=== PATIENT | female | born 1945 | race Caucasian/White ===

== ENCOUNTER → 2016-03-24 | Outpatient (CLI) | payer MEDICARE | LOC: GMAL 10:54 | PROVIDERS: ATTEND Family Medicine | DX: R53.83 Other fatigue (principal) ==

== ENCOUNTER 2016-04-21 10:56 | Emergency (ER) | payer MEDICARE ==
--- NOTE | 2016-04-21 11:13 | ED.PDOC ---
History of Present Illness - General Chief Complaint: Upper Extremity Injury Stated Complaint: pain right arm/fall Time Seen by Provider: 04/21/16 11:13 Source: patient - History of Present Illness Initial Comments: She stated dropped off her grandaughter in school and on her way to her car stepped off a curb lost her balance and fell on her right side;denies head neck chest hip pain but with bruising right knee. Timing/Duration: 1-3 hours Severity: moderate Improving Factors: rest Worsening Factors: movement Associated Symptoms: denies symptoms Allergies/Adverse Reactions: Allergies [place] Allergy (Severe, Verified 04/21/16 11:19) Amlodipine [From Norvasc] Allergy (Verified 04/21/16 11:19) Codeine Allergy (Verified 04/21/16 11:19) Diazepam [From Valium] Allergy (Verified 04/21/16 11:19) Penicillins Allergy (Verified 04/21/16 11:19) Phenytoin [From Dilantin] Allergy (Verified 04/21/16 11:19) Sulfa Antibiotics Allergy (Verified 04/21/16 11:19) oregano Allergy (Uncoded 05/01/15 16:09) Home Medications: Ambulatory Orders B-Complex W/ Folic Acid [B-Complex] 1 tab PO DAILY 01/28/15 Furosemide [Lasix] 80 mg PO DAILY 01/28/15 Lisinopril 20 mg PO DAILY 01/28/15 Simvastatin [Zocor] 20 mg PO BEDTIME 01/28/15 Spironolactone [Aldactone] 100 mg PO DAILY 01/28/15 Carvedilol 25 mg PO BID 04/21/16 Insulin NPH Isophane & Reg (Hu [Humulin 70/30] 45 unit SC BEDTIME 04/21/16 Insulin NPH Isophane & Reg (Hu [Humulin 70/30] 60 unit SC DAILY 04/21/16 Tramadol HCl 50 mg PO TID PRN #20 tab 04/21/16 Review of Systems - Review of Systems Constitutional: States: no symptoms reported EENTM: States: no symptoms reported Respiratory: States: no symptoms reported Cardiology: States: no symptoms reported Gastrointestinal/Abdominal: States: no symptoms reported Genitourinary: States: no symptoms reported Musculoskeletal: States: other - pain right arm Skin: States: other - abrasion (r)-knee Neurological: States: no symptoms reported Endocrine: States: no symptoms reported Hematologic/Lymphatic: States: no symptoms reported Past Medical History (General) - Patient Medical History Hx Seizures: No Hx Stroke: No Hx Asthma: No Hx of COPD: No Hx Cardiac Disorders: No Hx Congestive Heart Failure: Yes Hx Pacemaker: No Hx Hypertension: Yes Hx Diabetes: Yes Hx MRSA: No Hx Other PMH: Yes - dyslipedemia,anemia Surgical History: other - eye surgeryparotid excision right,excision basal cell ca,colonoscopy,egd - Vaccination History Hx Influenza Vaccination: No - does not take them - Social History Hx Tobacco Use: No Hx Alcohol Use: No Hx Substance Use: No Hx Physical Abuse: No Hx Emotional Abuse: No Family Medical History - Family History Mother Family History: Unknown Living Status: Unknown Hx Cardiac Disease: Yes - mom Hx Family Diabetes: Yes - dad Physical Exam - Physical Exam General Appearance: Alert, No apparent distress Eye Exam: bilateral normal Ears, Nose, Throat: hearing grossly normal, normal ENT inspection, normal pharynx Neck: non-tender, full range of motion, supple Respiratory: chest non-tender, lungs clear, normal breath sounds, no respiratory distress, no accessory muscle use Cardiovascular/Chest: normal peripheral pulses, regular rate, rhythm, no edema, no gallop, no JVD, no murmur Peripheral Pulses: radial,right: 2+, radial,left: 2+ Gastrointestinal/Abdominal: non tender, soft, no organomegaly, no pulsatile mass Back Exam: normal inspection, no CVA tenderness, no vertebral tenderness Extremity: non-tender, normal inspection, no pedal edema, no calf tenderness Neurologic: no motor/sensory deficits, alert, normal mood/affect, oriented x 3 Skin Exam: other - superficial abrasioelbow and knee Progress - EKG/XRAY/CT XRAY: elbow - no fracture-right;humerus right -no fracture;knee right-no fracture,degenerative chngas Departure - Departure Clinical Impression: Fall due to stumbling Qualifiers: Encounter type: initial encounter Qualifier Code: (W01.0XXA) Fall on same level from slipping, tripping and stumbling without subsequent striking against object, initial encounter Abrasion of elbow Qualifiers: Encounter type: initial encounter Laterality: right Qualifier Code: (S50.311A) Abrasion of right elbow, initial encounter Contusion of arm, right Qualifiers: Encounter type: initial encounter Qualifier Code: (S40.021A) Contusion of right upper arm, initial encounter Contusion of knee, right Qualifiers: Encounter type: initial encounter Qualifier Code: (S80.01XA) Contusion of right knee, initial encounter Time of Disposition: 12:23 Disposition: Discharge to Home or Self Care Condition: Good Departure Forms: ED Discharge - Pt. Copy, Patient Portal Self Enrollment Instructions: DI for Contusion, DI for Abrasion Prescriptions: Tramadol HCl 50 mg PO TID PRN #20 tab PRN Reason: Pain Home Medications: Ambulatory Orders B-Complex W/ Folic Acid [B-Complex] 1 tab PO DAILY 01/28/15 Furosemide [Lasix] 80 mg PO DAILY 01/28/15 Lisinopril 20 mg PO DAILY 01/28/15 Simvastatin [Zocor] 20 mg PO BEDTIME 01/28/15 Spironolactone [Aldactone] 100 mg PO DAILY 01/28/15 Carvedilol 25 mg PO BID 04/21/16 Insulin NPH Isophane & Reg (Hu [Humulin 70/30] 45 unit SC BEDTIME 04/21/16 Insulin NPH Isophane & Reg (Hu [Humulin 70/30] 60 unit SC DAILY 04/21/16 Tramadol HCl 50 mg PO TID PRN #20 tab 04/21/16 Additional Instructions: RETURN TO EMERGENCY ROOM NEEDED
--- NOTE | 2016-04-21 12:25 | RAD ---
EXAM DESCRIPTION: XR KNEE 1-2 VIEWS CLINICAL HISTORY: pain COMPARISON: None. IMPRESSION: Three views of the right knee show no evidence of acute fracture, focal bone destruction, or joint dislocation. Cross-table lateral view shows no obvious joint effusion or fluid fluid level in the suprapatella bursa. Mild narrowing of the patellofemoral compartment and moderate narrowing of the medial tibiofemoral compartment with joint line osteophytes is seen consistent with osteoarthritic changes. Moderate vascular calcifications are noted. Electronically signed by: Cristobal Cano MD 04/21/2016 12:24
--- NOTE | 2016-04-21 12:27 | RAD ---
EXAM DESCRIPTION: XR ELBOW 3 VIEWS; XR HUMERUS CLINICAL HISTORY: 70 y/o ,F, pain COMPARISON: None. IMPRESSION: Two views of the right humerus demonstrate no evidence of a fracture. Degenerative change of the acromioclavicular joint noted. Three views of the right elbow demonstrates evidence of previous tendinopathy of the common extensor tendon of the right forearm. No evidence of of the right elbow fracture on today's exam. Electronically signed by: Julio Cesar Ferrell MD 04/21/2016 12:25
[2016-04-21 13:38] VITALS: BP 136/58; TEMP 98; O2SAT 99
== END 2016-04-21 13:25 | disposition home or self-care (01) ==
LOC: ER 10:56
DX: S50.311A Abrasion of right elbow, initial encounter (principal); S40.021A Contusion of right upper arm, initial encounter; S80.01XA Contusion of right knee, initial encounter; I50.9 Heart failure, unspecified; Z88.0 Allergy status to penicillin; Z88.2 Allergy status to sulfonamides; Z79.4 Long term (current) use of insulin; Z79.899 Other long term (current) drug therapy; Z88.6 Allergy status to analgesic agent; Z91.018 Allergy to other foods; W10.1XXA Fall (on)(from) sidewalk curb, initial encounter

== ENCOUNTER 2016-04-26 07:56 | Emergency (ER) | payer MEDICARE ==
--- NOTE | 2016-04-26 08:22 | ED.PDOC ---
History of Present Illness - General Chief Complaint: General Stated Complaint: weakness, fall Time Seen by Provider: 04/26/16 08:12 Source: patient, RN notes reviewed, Vital Signs reviewed, EMS notes reviewed Exam Limitations: no limitations - History of Present Illness Initial Comments: Ms. Darleen Irwin 70 y/o female with history of dm2,heart disease,and thyroid problem stated fell at home today but could not remember how she fell at home stated she was dizzy and mouth feels dry,and had not eaten breakfast.FSBS- 400.She stated that had an episode of vomiting 2 days ago .She denies weakness, slurred speech,blurry vision.Fell off a curb 4 days ago but no major injuries. Timing/Duration: 1-3 hours Improving Factors: nothing Worsening Factors: nothing Associated Symptoms: denies symptoms, headaches Allergies/Adverse Reactions: Allergies [place] Allergy (Severe, Verified 04/26/16 08:07) Amlodipine [From Norvasc] Allergy (Verified 04/26/16 08:07) Codeine Allergy (Verified 04/26/16 08:07) Diazepam [From Valium] Allergy (Verified 04/26/16 08:07) Penicillins Allergy (Verified 04/26/16 08:07) Phenytoin [From Dilantin] Allergy (Verified 04/26/16 08:07) Sulfa Antibiotics Allergy (Verified 04/26/16 08:07) oregano Allergy (Uncoded 04/26/16 08:07) Home Medications: Ambulatory Orders B-Complex W/ Folic Acid [B-Complex] 1 tab PO DAILY 01/28/15 Furosemide [Lasix] 80 mg PO DAILY 01/28/15 Lisinopril 20 mg PO DAILY 01/28/15 Simvastatin [Zocor] 20 mg PO BEDTIME 01/28/15 Spironolactone [Aldactone] 100 mg PO DAILY 01/28/15 Carvedilol 25 mg PO BID 04/21/16 Insulin NPH Isophane & Reg (Hu [Humulin 70/30] 45 unit SC BEDTIME 04/21/16 Insulin NPH Isophane & Reg (Hu [Humulin 70/30] 60 unit SC DAILY 04/21/16 Tramadol HCl 50 mg PO TID PRN #20 tab 04/21/16 Review of Systems - Review of Systems Constitutional: States: no symptoms reported EENTM: States: no symptoms reported Respiratory: States: no symptoms reported Cardiology: States: no symptoms reported Gastrointestinal/Abdominal: States: no symptoms reported Genitourinary: States: no symptoms reported Musculoskeletal: States: no symptoms reported Skin: States: no symptoms reported Neurological: States: see HPI, other - dizziness Endocrine: States: no symptoms reported Hematologic/Lymphatic: States: no symptoms reported Past Medical History (General) - Patient Medical History Hx Seizures: No Hx Stroke: No Hx Asthma: No Hx of COPD: No Hx Cardiac Disorders: No Hx Congestive Heart Failure: Yes Hx Pacemaker: No Hx Hypertension: Yes Hx Diabetes: Yes Hx Cancer: Yes - non-basal cell CA from nose removed Hx MRSA: No Surgical History: other - excision (r)parotid gland tumor - Vaccination History Hx Influenza Vaccination: No - does not take them Hx Pneumococcal Vaccination: Yes - 2016 - Social History Hx Tobacco Use: No Hx Alcohol Use: No Hx Substance Use: No Hx Physical Abuse: No Hx Emotional Abuse: No - Activities of Daily Living Patient Lives Alone: No - with son, Grooming Ability: Independent Eating (Feeding) Ability: Independent Toileting Ability: Independent Family Medical History - Family History Mother Family History: Unknown Living Status: Hx Cardiac Disease: Yes - mom Hx Family Diabetes: Yes - dad Hx Family Cancer: Yes - basal cell ca-dad;uterine ca-sister,mother Physical Exam - Physical Exam General Appearance: Alert, No apparent distress, Other - speech fluent Eye Exam: bilateral normal Ears, Nose, Throat: hearing grossly normal, normal ENT inspection, normal pharynx Neck: non-tender, full range of motion, supple, normal inspection Respiratory: chest non-tender, lungs clear, normal breath sounds, no respiratory distress, no accessory muscle use Cardiovascular/Chest: normal peripheral pulses, regular rate, rhythm, no edema, no gallop, no JVD Gastrointestinal/Abdominal: normal bowel sounds, non tender, soft, no organomegaly, no pulsatile mass Back Exam: normal inspection, no CVA tenderness, no vertebral tenderness Extremity: normal range of motion, non-tender, normal inspection Neurologic: no motor/sensory deficits, alert, normal mood/affect, oriented x 3, other - GCS-15 Skin Exam: normal color, warm/dry, other - ;old bruises from previus fall both legs Lymphatic: no adenopathy Progress - EKG/XRAY/CT EKG: Sinus, nonspecific ST T wave Chg - inferior leads XRAY: chest - no acute changes noted CT Ordered: Yes - scalp hematoma posterior left vertx;linear area of hyperdensity (r) vertex Departure - Departure Clinical Impression: Diabetes mellitus due to underlying condition with hyperosmolarity without nonketotic hyperglycemic-hyperosmolar coma ([facility]) Fall at home Qualifiers: Encounter type: initial encounter Qualifier Code: (W19.XXXA) Unspecified fall, initial encounter Hemorrhage of brain, traumatic Qualifiers: Encounter type: initial encounter Loss of consciousness presence/duration: without LOC Qualifier Code: (S06.300A) Unspecified focal traumatic brain injury without loss of consciousness, initial encounter Acute pancreatitis, unspecified Qualifiers: Pancreatitis type: other Qualifier Code: (K85.8) Other acute pancreatitis Time of Disposition: 10:43 - D/W-- URS- Disposition: Transfer to Hospital Departure Forms: ED Discharge - Pt. Copy, Patient Portal Self Enrollment Referrals: Jordin Altman III, MD [Primary Care Provider] - 1-2 Weeks Home Medications: Ambulatory Orders B-Complex W/ Folic Acid [B-Complex] 1 tab PO DAILY 01/28/15 Furosemide [Lasix] 80 mg PO DAILY 01/28/15 Lisinopril 20 mg PO DAILY 01/28/15 Simvastatin [Zocor] 20 mg PO BEDTIME 01/28/15 Spironolactone [Aldactone] 100 mg PO DAILY 01/28/15 Carvedilol 25 mg PO BID 04/21/16 Insulin NPH Isophane & Reg (Hu [Humulin 70/30] 45 unit SC BEDTIME 04/21/16 Insulin NPH Isophane & Reg (Hu [Humulin 70/30] 60 unit SC DAILY 04/21/16 Tramadol HCl 50 mg PO TID PRN #20 tab 04/21/16
[2016-04-26] MEDS ORDERED: SODIUM CHLORIDE 0.9% 500ML 500 ML IVS ONE (08:25)
--- NOTE | 2016-04-26 08:49 | RAD ---
EXAM DESCRIPTION: XR CHEST 1 VIEW CLINICAL HISTORY: Chest pain. COMPARISON: None Available. TECHNIQUE: Frontal chest radiograph. FINDINGS: Heart size is normal. Lungs are clear. No acute osseous injury. IMPRESSION: No acute chest process Electronically signed by: Aman Meyer MD 04/26/2016 08:47
--- NOTE | 2016-04-26 08:50 | CT ---
EXAM DESCRIPTION: CT HEAD WITHOUT IV CONTRAST CLINICAL HISTORY: headche COMPARISON: None available TECHNIQUE: Non contrast cranial CT FINDINGS: Hematoma along the posterior left vertex. Hyperdensity noted along the vertex of the right frontoparietal lobe. The ventricles are midline and unremarkable. Basilar cisterns are widely patent. Atherosclerotic disease noted. The orbits and globes are unremarkable. The calvarium is intact. IMPRESSION: Subcutaneous hematoma noted along the counseling department chair margin of the vertex. There is a linear area of hyperdensity seen within the right vertex of the frontoparietal lobe. This may be compatible with hemorrhage. MRI is suggested with gradient sequences within both the coronal and axial dimensions. Electronically signed by: Julio Cesar Ferrell MD 04/26/2016 08:49
[2016-04-26 09:53] VITALS: O2SAT 100
[2016-04-26] MEDS ORDERED: INSULIN, REG.(HUMAN) 100 U/ML VIAL IV ONE ×2 (10:02→11:50)
[2016-04-26] MEDS ORDERED: SODIUM CHLORIDE 0.9% 1000ML 1,000 ML IVS ONE (10:26)
[2016-04-26 11:35] VITALS: BP 119/55; TEMP 97.5
== END 2016-04-26 11:45 | disposition short-term general hospital (02) ==
LOC: ER 07:56
DX: S06.300A Unspecified focal traumatic brain injury without loss of consciousness, initial encounter (principal); K85.80 Other acute pancreatitis without necrosis or infection; I11.0 Hypertensive heart disease with heart failure; I50.9 Heart failure, unspecified; E08.00 Diabetes mellitus due to underlying condition with hyperosmolarity without nonketotic hyperglycemic-hyperosmolar coma (NKHHC); Z79.4 Long term (current) use of insulin; Z85.828 Personal history of other malignant neoplasm of skin; Z88.6 Allergy status to analgesic agent; Z88.0 Allergy status to penicillin; Z91.018 Allergy to other foods; W19.XXXA Unspecified fall, initial encounter; Z91.81 History of falling; Y92.009 Unspecified place in unspecified non-institutional (private) residence as the place of occurrence of the external cause
CPT/HCPCS: 36416; 36600; 70450; 71010; 80048; 80053; 82550; 82553; 82803; 82805; 82948; 83690; 83880; 84443; 84484; 85025; 85610; 85730; 93005; J7030; J7040

== ENCOUNTER 2016-05-01 17:05 | Inpatient (IN) | payer MEDICARE ==
[2016-05-01] MEDS ORDERED: SODIUM CHLORIDE 0.9% (FLUSH) 10 ML SYG IV PRN (20:21)
[2016-05-01] MEDS ORDERED: DEXTROSE 50% 25 GM/50 ML SYG IV PRN (20:21)
[2016-05-01] MEDS ORDERED: ALUM & MAG HYDROX-SIMETHICONE 30 ML UD PO PRN (20:21)
[2016-05-01] MEDS ORDERED: MAGNESIUM HYDROXIDE 30 ML UD PO PRN (20:21)
[2016-05-01] MEDS ORDERED: GLUCAGON INJ 1 MG VIAL SUBCU PRN (20:21)
[2016-05-01] MEDS ORDERED: INSULIN DETEMIR 100 UNITS/ML PEN SUBCU ONE (20:31)
[2016-05-01] MEDS ORDERED: CHLORHEXIDINE GLUCONATE 4 % 15 ML UD TOP ONE (20:36)
[2016-05-01] MEDS ORDERED: NON-FORMULARY MEDICATION 1 EA MIS (Carvedilol [Carvedilol] 6.25 MG) PO SCH (21:00)
[2016-05-01] MEDS ORDERED: CARVEDILOL 3.125 MG TAB ONE (21:11)
[2016-05-01] MEDS: LEVALBUTEROL NEBS 1.25 MG/3 ML VIAL INH SCH (21:22)
[2016-05-01] MEDS: NYSTATIN POWDER 15GM BTTL TOP SCH (22:05)
[2016-05-01] MEDS: SODIUM CHLORIDE 0.9% (FLUSH) 10 ML SYG IV SCH (22:06)
[2016-05-01] MEDS: traMADol HCL 50 MG TAB PO PRN (22:06)
[2016-05-01] MEDS: INSULIN LISPRO 100 UNITS/ML PEN SUBCU SCH (22:07)
[2016-05-01] MEDS: IV SET AND CAP CHANGE INJ INJ SCH (22:10)
[2016-05-02] MEDS: OMEPRAZOLE CAP 20 MG CAP PO SCH (06:24)
[2016-05-02] MEDS ORDERED: SODIUM CHLORIDE 0.9% 10 ML VIAL IV PRN (07:19)
[2016-05-02] MEDS: INSULIN LISPRO 100 UNITS/ML PEN SUBCU SCH ×4 (07:20→21:33)
[2016-05-02] MEDS: SPIRONOLACTONE 25 MG TAB PO SCH (08:20)
[2016-05-02] MEDS: LEVALBUTEROL NEBS 1.25 MG/3 ML VIAL INH SCH ×3 (08:32→21:45)
--- NOTE | 2016-05-02 09:01 | HP ---
HISTORY OF PRESENT ILLNESS: This 70-year-old, white female was transferred from [facility] after having spent 5 days there after significant injury was noted in our Emergency Room on 04/26/16. She apparently had fallen about 5 days earlier and had suffered injury to her shoulder when walking back from a school and tripping in a curb. On the morning of 04/26/16, she was at home with her disabled son, who has Guillain- Crockett and advanced disability who is now in a senior living. She lost consciousness and fell, hitting her head and woke up with EMS attending to her needs. In the Emergency Room, she was found to be suffering from a hyperosmolar state with possibly contribution to syncope with early coma state noted. Her sugars were over 900 at the time. She was in metabolic acidosis and was transferred to [place] for specific assistance and support. When she fell and hit her head, she also had evidence of a subarachnoid hemorrhage on the initial CT scan which cleared on subsequent CT scans of the head. She was observed neurologically in the Intensive Care Unit and eventually transferred to Med/Surg where her diabetes was managed with eventual use of Levemir twice daily. She was initially started on 40 units twice a day, resulting in a very low blood sugar, especially in the morning. She is now on 30 units twice a day as of yesterday and this also will need to be adjusted to a more physiologic level before she will be able to discharged home under Dr. Altman ongoing care. She was transferred from [facility] to our hospital for continuation of rehabilitation on a Swing Bed status, to which she is admitted. Basic laboratory studies will be followed initially and then only as needed. Her initial sugar was around 73 before eating supper on the evening of her admission to Swing Bed. PAST MEDICAL HISTORY: 1. Diabetes mellitus, having changed from metformin because of kidney injury potential to insulin. 2. Hypertension. 3. Recent diabetic acidosis with hyperosmolar state requiring ICU transfer to [place], now with continued diabetic management. 4. Chronic renal insufficiency. 5. History of seizure disorder. 6. History of deep venous thrombosis of the left arm in the 80s. 7. Chronic hypokalemia with the patient being on Lasix and Spironolactone. 8. Chronic congestive heart failure with last echocardiogram showing 50% ejection fraction with diastolic dysfunction. 9. History of hyperlipidemia. 10. History of positive Helicobacter pylori. PAST SURGICAL HISTORY: 1. Basal cell removed from the nose. 2. 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 3. Wrist cyst removal. 4. Multiple eye surgeries because of trauma from a button fragment that went into her left eye. 5. Colonoscopy for anemia in January of 2015. MEDICATIONS: Please refer to list for up to date and verified list of medications taken. ALLERGIES: NORVASC, which causes edema, METFORMIN, hurts kidney function, SULFA , PENICILLIN. SHE HAS ANAPHYLAXIS TO STRAWBERRIES. SHE HAS HAD PROBLEMS WITH DILANTIN, DIAZEPAM AND CODEINE. FAMILY HISTORY: Positive for atrial fibrillation, hypertension, diabetes, heart disease. She has had some brothers dying with pneumonia, congenital heart disease, and heart attacks. She has a sister with uterine cancer. She has one son who is in the senior living now with Guillain-Crockett in poor health, though showing some improvement. 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 Her father earlier today. Her son, as mentioned before, is in [facility]. She has never smoked and does not drink alcohol. REVIEW OF SYSTEMS: GENERAL: She has lost significant weight recently, primarily because she has not been eating well and the diabetes has been poorly controlled. RESPIRATORY: She has had some mild shortness of breath. GASTROINTESTINAL: Appetite has been decreased until just yesterday. CARDIOVASCULAR: No palpitations or chest pains. GENITOURINARY: She has some polyuria with her diabetes poorly controlled. MUSCULOSKELETAL: Very weak and multiple pains with occasional causing her right shoulder to go out of socket. NEUROLOGIC: She is generally very weak. PHYSICAL EXAMINATION: VITAL SIGNS: Afebrile. Blood pressure 137/78. Pulse oximetry room air 100%. Weight 92.9 kg. GENERAL: The patient is awake, alert, oriented and communicative. HEENT: She has deformity where her right parotid was, slight scar on her nose where skin cancer was removed. NECK: Supple. LUNGS: Diminished breath sounds with occasional rhonchi. CARDIOVASCULAR: Heart tones are regular without any significant gallops. ABDOMEN: Soft with mild epigastric tenderness to palpation. Otherwise, bowel tones are present. EXTREMITIES: Very touchy with evidence of peripheral neuropathy according to the patient. Some bilateral pedal edema is evident and bruising is noted over the arms from IV sites and some of her falls. NEUROLOGIC: No focal neurological deficits. The patient is awake, alert, oriented and communicative. LABORATORY: Pending with most recent blood sugar being 73 at the time of her admission. Cultures are obtained and pending. ASSESSMENT: 1. History of diabetes mellitus on insulin therapy with hyperosmolar state and syncope with metabolic acidosis recently noted and now in the recuperative state. 2. Chronic history of hypokalemia, requiring close observation and management as needed. 3. History of chronic renal insufficiency with an acute injury with reevaluation in process. 4. History of falling with head injury and subarachnoid hemorrhage, showing improvement on followup CT scans of the head. 5. Chronic shoulder pain with dislocation, yet falling and acute injury currently, recuperating from. 6. Chronic weakness, precluding her safely being able to return home until after rehab and strengthening has been completed. PLAN: The patient is admitted to Swing Bed rehabilitation until she is strong enough to safely return home. She will be observed closely and increase activity steadily. Encourage adequate nutrition to improve her general strength. Treat a draining lesion on her chest as a boil. She was started on Doxycycline recently, but cultures will be obtained and general cleaning to the area is imperative. Close followup of diabetes and management with an attempt to give her twice daily Levemir, but try to give her maybe 2/3 of her dose in the morning and 1/3 in the evening. Close followup necessary. Physical therapy will continue with rehabilitation with Social Service intervention as well. #[id number] [facility]ITALEst[facility]
[2016-05-02] MEDS: CARVEDILOL 3.125 MG TAB PO SCH ×2 (09:20→21:33)
[2016-05-02] MEDS: FUROSEMIDE 40 MG TAB PO SCH (09:20)
[2016-05-02] MEDS: LISINOPRIL 10 MG TAB PO SCH (09:21)
[2016-05-02] MEDS: NYSTATIN POWDER 15GM BTTL TOP SCH ×2 (09:21→21:42)
[2016-05-02] MEDS: SODIUM CHLORIDE 0.9% (FLUSH) 10 ML SYG IV SCH ×2 (09:22→21:35)
[2016-05-02] MEDS: ACETAMINOPHEN 325 MG TAB PO PRN (10:58)
[2016-05-02] MEDS ORDERED: INSULIN DETEMIR 100 UNITS/ML PEN SUBCU ONE ×2 (14:24→15:54)
--- NOTE | 2016-05-02 15:39 | PN ---
DATE: 05/02/16 SUBJECTIVE: The patient is sitting up in a chair with her legs elevated. She is able to carry on a good conversation. No significant shortness of breath at this time. Ongoing diabetic control as well as treatment and cleansing to the chest wound is to continue. OBJECTIVE: VITAL SIGNS: Afebrile. Pulse 93. Pulse oximetry 98% on room air. Blood pressure 140/74. LUNGS: Generally clear. HEART: Tones are regular ABDOMEN: Soft. Still requiring ongoing cleaning and dressing to the draining area of anterior chest wall. LABORATORY: Potassium 4.0, BUN 10. Initial glucose last evening was 73. It was 125 fasting this morning. Hemoglobin A1c very elevated at 12.6, requiring ongoing control of the diabetes by insulin adjustments. Calcium 8.5. Liver enzymes normal. Beta natriuretic peptide 66. Albumin low at 2.4. Urine showed some hematuria, some pyuria and bacteruria with culture pending. ASSESSMENT: 1. History of diabetes mellitus on insulin therapy with recent severe episode of hyperosmolar state with syncope with associated metabolic acidosis requiring intensive care observation and treatment and now in the recuperative state. 2. Chronic history of hypokalemia with ongoing observation and supplementation to continue. 3. History of chronic renal insufficiency with an acute injury with further investigation in process. 4. History of falling with head injury and subarachnoid hemorrhage, showing improvement on followup CT scans with the hemorrhage no longer being noted. 5. Chronic shoulder pain with dislocation, recurrent. 6. Chronic weakness, precluding her safely being able to return home until after rehab and strengthening has been completed. PLAN: We will continue with ongoing adjustment of her insulin. Hopefully she will be able to be on dosings of Levemir such as 25 in the morning and 10 in the evening, but we will recheck fasting blood sugars in the morning as rehabilitation continues. Close followup to continue. #[id number] [facility]
[2016-05-02] MEDS: traMADol HCL 50 MG TAB PO PRN (20:17)
[2016-05-03] MEDS: traMADol HCL 50 MG TAB PO PRN ×2 (04:41→20:58)
[2016-05-03] MEDS: OMEPRAZOLE CAP 20 MG CAP PO SCH (06:00)
[2016-05-03] MEDS: INSULIN LISPRO 100 UNITS/ML PEN SUBCU SCH ×4 (08:15→21:00)
[2016-05-03] MEDS: LEVALBUTEROL NEBS 1.25 MG/3 ML VIAL INH SCH ×3 (08:25→20:33)
[2016-05-03] MEDS: CARVEDILOL 3.125 MG TAB PO SCH ×2 (09:12→20:57)
[2016-05-03] MEDS: SPIRONOLACTONE 25 MG TAB PO SCH (09:12)
[2016-05-03] MEDS: FUROSEMIDE 40 MG TAB PO SCH (09:12)
[2016-05-03] MEDS: LISINOPRIL 10 MG TAB PO SCH (09:13)
[2016-05-03] MEDS: NYSTATIN POWDER 15GM BTTL TOP SCH ×2 (09:14→20:59)
[2016-05-03] MEDS: SODIUM CHLORIDE 0.9% (FLUSH) 10 ML SYG IV SCH ×2 (09:15→21:05)
[2016-05-03] MEDS ORDERED: FLUCONAZOLE 150 MG TAB PO ONE (12:15)
[2016-05-03] MEDS: DOXYCYCLINE HYCLATE CAP 100 MG CAP PO SCH ×2 (12:25→20:58)
[2016-05-03] MEDS: CEPHALEXIN MONOHYDRATE 500 MG CAP PO SCH (12:26)
[2016-05-03] MEDS ORDERED: INSULIN DETEMIR 100 UNITS/ML PEN SUBCU ONE (17:22)
--- NOTE | 2016-05-03 19:23 | PN ---
DATE: 05/03/16 SUPERVISING PHYSICIAN: Aman Lambert M.D. SUBJECTIVE: The patient is sitting in the bedside chair eating lunch. She has no significant shortness of breath. Has no nausea or vomiting. She does note that had some drainage coming from the wound on her chest. OBJECTIVE: VITAL SIGNS: She remains afebrile, temperature 97.9, pulse 80, blood pressure 116/64, respirations 18, O2 sat 98% on room air. Weight is 92.9 kg. CHEST: Clear to auscultation. HEART: Regular rate and rhythm. Chest wall shows an area of erythema and drainage with some green purulent fluid with current culture results pending. ABDOMEN: Soft, positive bowel sounds. NEUROLOGIC: She is alert and oriented times three. LABORATORY: No laboratory or radiological studies repeated since admission. Blood sugars have ranged from 121 to 295. MICROBIOLOGY: Wound culture of the chest wound anterior shows gram positive cocci with culture pending final report. Urine culture preliminary shows presumptive Proteus species with final sensitivity and identification pending. ASSESSMENT: 1. History of diabetes mellitus requiring insulin therapy with a recent severe episode of hyperosmolar state with syncope with associated metabolic acidosis requiring transfer to [facility] for intensive care showing improvement after being discharged to Swing Bed. 2. Chronic history of hypokalemia. 3. History of chronic renal insufficiency with acute injury. 4. History of fall with a head injury and a subarachnoid hemorrhage showing improvement with followup CT scans with hemorrhage no longer being noted. 5. Chronic shoulder pain with dislocation recurrent. 6. Chronic weakness precluding her safety being able to return home until after rehabilitation and strengthening has been completed through her Swing Bed admission. 7. Urinary tract infection on admission to Swing Bed with culture preliminary showing a Proteus species. 8. Skin abscess of the anterior chest wall with preliminary culture results showing gram positive cocci. PLAN: The patient will continue on adjustment of her insulin today. Will start her on Levemir initially 25 and 10 at night, closely monitor. Anticipate possibly decreasing in the morning based off sliding scale requirements. She will continue with rehabilitation and physical therapy. In regards to the abscess on her chest wall, will put her on some Doxycycline 100 mg b.i.d. and for the urinary tract infection Keflex 500 mg b.i.d. until we get final culture results, then we can target antibiotic therapy accordingly. Until discharge, will continue to follow closely and treat appropriately. #[id number] [facility]
[2016-05-03] MEDS: INSULIN DETEMIR 100 UNITS/ML PEN SUBCU SCH (21:02)
--- NOTE | 2016-05-03 23:18 | PCM.CORE ---
Physician DVT/VTE - Nurse DVT Assessment & Total Each Risk Factor Represents 5 Points: Major Trauma < 1 month Each Risk Factor Represents 2 Points: Age 60-74 Each Risk Factor is 1 Point: Serious Lung disease (pnemonia <1month, COPD, emphysema,etc) DVT Assessment Score: 8 - 5 or more Very High Risk Treatments: Early Ambulation *, Sequential Compression Device Pharmacological: Enoxaparin 30mg SQ BID
[2016-05-04] MEDS: CEPHALEXIN MONOHYDRATE 500 MG CAP PO SCH ×2 (00:30→12:10)
[2016-05-04] MEDS: traMADol HCL 50 MG TAB PO PRN (05:13)
[2016-05-04] MEDS: OMEPRAZOLE CAP 20 MG CAP PO SCH (06:07)
[2016-05-04] MEDS: INSULIN LISPRO 100 UNITS/ML PEN SUBCU SCH ×2 (07:13→11:54)
[2016-05-04] MEDS ORDERED: ENOXAPARIN SODIUM 30 MG/0.3 ML SYG SUBCU ONE (07:22)
[2016-05-04] MEDS: ACETAMINOPHEN 325 MG TAB PO PRN (07:55)
[2016-05-04] MEDS ORDERED: TROLAMINE SALICYLATE CREAM 1 APPLIC TUBE TOP PRN (08:08)
[2016-05-04] MEDS ORDERED: CAPSAICIN 0.025% CREAM 60 GM TUBE TOP PRN (08:27)
[2016-05-04] MEDS: LEVALBUTEROL NEBS 1.25 MG/3 ML VIAL INH SCH ×3 (08:29→20:00)
[2016-05-04] MEDS: NYSTATIN POWDER 15GM BTTL TOP SCH (09:00)
[2016-05-04] MEDS: SPIRONOLACTONE 25 MG TAB PO SCH (09:13)
[2016-05-04] MEDS: FUROSEMIDE 40 MG TAB PO SCH (09:14)
[2016-05-04] MEDS: DOXYCYCLINE HYCLATE CAP 100 MG CAP PO SCH (09:14)
[2016-05-04] MEDS: CARVEDILOL 3.125 MG TAB PO SCH (09:14)
[2016-05-04] MEDS: LISINOPRIL 10 MG TAB PO SCH (09:14)
[2016-05-04] MEDS: SODIUM CHLORIDE 0.9% (FLUSH) 10 ML SYG IV SCH (09:14)
[2016-05-04] MEDS: ENOXAPARIN SODIUM 30 MG/0.3 ML SYG SUBCU SCH (09:15)
[2016-05-04] MEDS: INSULIN DETEMIR 100 UNITS/ML PEN SUBCU SCH (10:06)
[2016-05-04] MEDS ORDERED: GENTAMICIN OPTH OINT 0.3% 3.5 GM TUBE ONE (11:43)
[2016-05-04] MEDS: GENTAMICIN 0.1% TOPICAL CREAM 15 GM TUBE TOP SCH (13:11)
[2016-05-05] MEDS: LEVALBUTEROL NEBS 1.25 MG/3 ML VIAL INH SCH ×3 (08:41→21:34)
[2016-05-05] MEDS: INSULIN LISPRO 100 UNITS/ML PEN SUBCU SCH ×6 (09:24→20:53)
[2016-05-05] MEDS: INSULIN DETEMIR 100 UNITS/ML PEN SUBCU SCH ×3 (09:27→20:53)
[2016-05-05] MEDS: GENTAMICIN 0.1% TOPICAL CREAM 15 GM TUBE TOP SCH ×6 (09:37→20:50)
[2016-05-05] MEDS: IV SET AND CAP CHANGE INJ INJ SCH (09:39)
[2016-05-05] MEDS: DOXYCYCLINE HYCLATE CAP 100 MG CAP PO SCH ×3 (09:39→20:50)
[2016-05-05] MEDS: CARVEDILOL 3.125 MG TAB PO SCH ×3 (09:39→20:51)
[2016-05-05] MEDS: NYSTATIN POWDER 15GM BTTL TOP SCH ×3 (09:39→20:52)
[2016-05-05] MEDS: SODIUM CHLORIDE 0.9% (FLUSH) 10 ML SYG IV SCH ×3 (09:39→20:51)
[2016-05-05] MEDS: OMEPRAZOLE CAP 20 MG CAP PO SCH (09:40)
[2016-05-05] MEDS: LISINOPRIL 10 MG TAB PO SCH (09:41)
[2016-05-05] MEDS: SPIRONOLACTONE 25 MG TAB PO SCH (09:41)
[2016-05-05] MEDS: FUROSEMIDE 40 MG TAB PO SCH (09:41)
[2016-05-05] MEDS: CEPHALEXIN MONOHYDRATE 500 MG CAP PO SCH ×2 (09:43→12:09)
[2016-05-05] MEDS: ENOXAPARIN SODIUM 30 MG/0.3 ML SYG SUBCU SCH (09:44)
[2016-05-05] MEDS ORDERED: COLCHICINE 0.6 MG TAB PO ONE (13:01)
[2016-05-05] MEDS ORDERED: COLCHICINE 0.6 MG TAB ONE (13:18)
--- NOTE | 2016-05-05 15:20 | RAD ---
EXAM DESCRIPTION: Right ankle two views CLINICAL HISTORY: 70 y/o ,F, Gout COMPARISON: None. IMPRESSION: Diffuse soft tissue swelling. Bones are osteopenic. No definite pannus. Prominent plantar spur/enthesophyte mild ankle fluid. Small Achilles enthesophyte. No definite gouty erosions. Electronically signed by: Fred Bates MD 05/05/2016 15:18
--- NOTE | 2016-05-05 15:21 | RAD ---
EXAM DESCRIPTION: Left foot two views CLINICAL HISTORY: 70 y/o ,F, Gout COMPARISON: None. IMPRESSION: There are Achilles and plantar enthesophyte spur. Mild dorsal osteophytes in the midfoot. No definite tophus. No extra-articular erosions. There is slight mineralization along the margins of the 1st MTP joint chondrocalcinosis versus early pannus/ tophus. Small ossification proximal to the medial navicular likely a small accessory navicular. There is an ossicle along the medial margin of the 1st TMT compartment degenerative in appearance. Electronically signed by: Fred Bates MD 05/05/2016 15:20
--- NOTE | 2016-05-05 15:23 | RAD ---
EXAM DESCRIPTION: Right foot two views CLINICAL HISTORY: 70 y/o ,F, Gout COMPARISON: None. IMPRESSION: There is metatarsus varus hallux valgus with prominent bunion. There is mineralization along the medial margin of the 1st MTP joint. Suspect chondrocalcinosis or vascular calcification. No definite gouty erosions. Scattered osteoarthritic changes in the toes. Small ossicle medial to the bunion area. Achilles and plantar enthesophyte spur noted. Diffuse peripheral vascular calcifications suggest possible diabetes. No acute process. Electronically signed by: Fred Bates MD 05/05/2016 15:21
[2016-05-05] MEDS: traMADol HCL 50 MG TAB PO PRN (17:33)
[2016-05-05] MEDS: COLCHICINE 0.6 MG TAB PO SCH (20:51)
[2016-05-06] MEDS: CEPHALEXIN MONOHYDRATE 500 MG CAP PO SCH ×2 (00:25→12:16)
[2016-05-06] MEDS: OMEPRAZOLE CAP 20 MG CAP PO SCH (06:11)
[2016-05-06] MEDS: INSULIN LISPRO 100 UNITS/ML PEN SUBCU SCH ×6 (08:14→21:02)
[2016-05-06] MEDS: LEVALBUTEROL NEBS 1.25 MG/3 ML VIAL INH SCH ×3 (08:20→22:47)
[2016-05-06] MEDS: INSULIN DETEMIR 100 UNITS/ML PEN SUBCU SCH ×2 (08:26→21:02)
[2016-05-06] MEDS: GENTAMICIN 0.1% TOPICAL CREAM 15 GM TUBE TOP SCH ×4 (08:45→20:42)
[2016-05-06] MEDS: SPIRONOLACTONE 25 MG TAB PO SCH (08:46)
[2016-05-06] MEDS: traMADol HCL 50 MG TAB PO PRN ×2 (08:46→17:10)
[2016-05-06] MEDS: COLCHICINE 0.6 MG TAB PO SCH ×2 (08:46→20:41)
[2016-05-06] MEDS: LISINOPRIL 10 MG TAB PO SCH (08:46)
[2016-05-06] MEDS: FUROSEMIDE 40 MG TAB PO SCH (08:46)
[2016-05-06] MEDS: DOXYCYCLINE HYCLATE CAP 100 MG CAP PO SCH ×2 (08:47→20:41)
[2016-05-06] MEDS: ENOXAPARIN SODIUM 30 MG/0.3 ML SYG SUBCU SCH (08:47)
[2016-05-06] MEDS: NYSTATIN POWDER 15GM BTTL TOP SCH ×2 (08:47→20:52)
[2016-05-06] MEDS: SODIUM CHLORIDE 0.9% (FLUSH) 10 ML SYG IV SCH ×2 (08:47→20:41)
[2016-05-06] MEDS: CARVEDILOL 3.125 MG TAB PO SCH ×2 (08:47→20:41)
--- NOTE | 2016-05-06 10:46 | PN ---
SUPERVISING PHYSICIAN: Uri Salazar MD DATE: 05/05/16 SUBJECTIVE: The patient this morning has had some pain in her both right and left great toe as well as the right ankle resulting in inability to fully stand and participate with physical therapy. Examination does appear to be a flare- up of gout. She is without any nausea or vomiting. She remains afebrile. OBJECTIVE: VITAL SIGNS: Temperature T-max 98.5, pulse 88, blood pressure 98/62, respirations 18, 02 saturation 97% on room air. I&O not available today. GENERAL: The patient appears to be in no distress. She does note that she has some pain in her feet bilaterally. CHEST: Clear to auscultation. Wound in the middle chest is showing continued drainage and improvement. Still has a little area of induration but overall shows to be improving after initiation of treatment with doxycycline and gentamicin cream. LUNGS: Clear to auscultation bilaterally. HEART: Regular rate and rhythm. ABDOMEN: Obese, soft, non-tender. Positive bowel sounds. EXTREMITIES: Bilateral great toes show some erythema with some swelling and warm to touch. Right ankle shows some edema compared to the left and with erythema on the lateral aspect of the malleolus. Pulses are strong bilaterally. NEUROLOGICAL: Alert and oriented x 3. LABORATORY: No reports. RADIOLOGY: X-rays of right ankle and bilateral feet pending. MICROBIOLOGY: MRSA culture surveillance culture was negative after 72 hours. Wound culture again showed MRSA and urine culture shows proteus mirabilis. She continues on antibiotics to include doxycycline and Keflex. ASSESSMENT: 1. Acute gouty flare-up involving bilateral great toes and right ankle inhibiting patient to participate today with physical therapy. 2. History of diabetes mellitus requiring insulin therapy with a recent severe episode of hyperosmolar state with syncope and associated metabolic acidosis requiring transfer to [facility] for intensive care showing improvement, now being discharged to Swing Bed for continued rehabilitation. 3. Chronic history of hypokalemia. 4. History of chronic renal insufficiency with acute injury with admission creatinine of 0.7. 5. History of fall with a head injury and a subarachnoid hemorrhage on previous admission, followup CT scan showed improvement with hemorrhage no longer being noted at admission to Swing Bed. 6. Chronic shoulder pain with dislocation recurrent. 7. Chronic weakness precluding her safely being able to return home until after rehabilitation and strengthening has been completed through her Swing Bed admission. 8. Urinary tract infection on admission to Swing Bed with culture showing Proteus mirabilis with sensitivity pattern showing sensitive to everything but Macrobid with patient currently being on Keflex as well as doxycycline. 9. Skin abscess of the anterior chest wall with final culture showing MRSA with the patient having been started on doxycycline. PLAN: Will continue to follow the patient closely in regards to insulin management and adjust Levemir according to sliding scale. More likely has increased the morning dose as she continues to show persistent elevation. Will monitor her wound closely and continue with doxycycline and gentamicin and should it continue to show improvement, continue with the current treatment or if failing to improve will consult Dr. Kiser in regards to further treatment. Will continue with Keflex for urinary tract infection with culture showing proteus mirabilis that was sensitive to everything but Macrobid. I did start her on some Colchicine 6 mg b.i.d. for the acute gouty flare-up as she is a poor candidate for NSAIDS. Will continue to treat her gout hoping to allow her to continue with her physical therapy. Will continue to follow with physical therapy recommendations as far s estimation of discharge and also disposition at discharge. Until the, we will continue to follow patient closely and treat appropriately. #[id number] [facility]
[2016-05-07] MEDS: CEPHALEXIN MONOHYDRATE 500 MG CAP PO SCH ×2 (00:01→11:59)
[2016-05-07] MEDS: traMADol HCL 50 MG TAB PO PRN (05:23)
[2016-05-07] MEDS: OMEPRAZOLE CAP 20 MG CAP PO SCH (06:21)
[2016-05-07] MEDS: INSULIN LISPRO 100 UNITS/ML PEN SUBCU SCH ×7 (08:38→21:23)
[2016-05-07] MEDS: INSULIN DETEMIR 100 UNITS/ML PEN SUBCU SCH ×2 (08:41→21:25)
[2016-05-07] MEDS: CARVEDILOL 3.125 MG TAB PO SCH ×2 (08:43→21:24)
[2016-05-07] MEDS: SPIRONOLACTONE 25 MG TAB PO SCH (08:43)
[2016-05-07] MEDS: GENTAMICIN 0.1% TOPICAL CREAM 15 GM TUBE TOP SCH ×4 (08:43→21:26)
[2016-05-07] MEDS: ENOXAPARIN SODIUM 30 MG/0.3 ML SYG SUBCU SCH (08:43)
[2016-05-07] MEDS: LISINOPRIL 10 MG TAB PO SCH (08:43)
[2016-05-07] MEDS: COLCHICINE 0.6 MG TAB PO SCH ×2 (08:44→21:24)
[2016-05-07] MEDS: SODIUM CHLORIDE 0.9% (FLUSH) 10 ML SYG IV SCH ×2 (08:44→21:30)
[2016-05-07] MEDS: DOXYCYCLINE HYCLATE CAP 100 MG CAP PO SCH ×2 (08:44→21:27)
[2016-05-07] MEDS: NYSTATIN POWDER 15GM BTTL TOP SCH ×2 (08:44→21:26)
[2016-05-07] MEDS: FUROSEMIDE 40 MG TAB PO SCH (08:44)
[2016-05-07] MEDS: LEVALBUTEROL NEBS 1.25 MG/3 ML VIAL INH SCH ×2 (10:00→15:00)
[2016-05-07] MEDS: IV SET AND CAP CHANGE INJ INJ SCH (21:26)
[2016-05-08] MEDS: CEPHALEXIN MONOHYDRATE 500 MG CAP PO SCH ×2 (00:52→13:01)
[2016-05-08] MEDS: LEVALBUTEROL NEBS 1.25 MG/3 ML VIAL INH SCH ×4 (01:30→21:21)
[2016-05-08] MEDS: OMEPRAZOLE CAP 20 MG CAP PO SCH (06:44)
[2016-05-08] MEDS: INSULIN LISPRO 100 UNITS/ML PEN SUBCU SCH ×7 (08:10→21:10)
--- NOTE | 2016-05-08 08:38 | PN ---
SUPERVISING PHYSICIAN: Uri Salazar MD DATE: 05/07/16 SUBJECTIVE: The patient is still having some difficulty walking secondary to the gout in her right toe. The left foot is essentially back to normal. Her diet has been adequate, although glucoses are being elevated requiring adjustment of her insulin throughout. She denies any nausea or vomiting and she remains afebrile. OBJECTIVE: VITAL SIGNS: Temperature 97.9, pulse 65, blood pressure 101/65, respirations 18 , 02 saturation 98% at rest on room air. I&O show negative balance of 5 with 1320 in and 1325 out. She has had one bowel movement today. GENERAL: The patient is still laying in bed. She says she is feeling much better, appears to be in better spirits. . CHEST: Lungs clear to auscultation auscultation. Wound on the mid chest is showing great improvement, still has some slight drainage but is much less decreased in size with very little erythema. HEART: Regular rate and rhythm. ABDOMEN: Obese, soft, non-tender. Positive bowel sounds. EXTREMITIES: Lower extremities show some gout flare-up with redness on the right great toe. Both ankles now are back to near normal size with no edema noted. Pulses remain strong.. NEUROLOGICAL: Alert and oriented x 3. LABORATORY: Blood sugars remain quite erratic and elevated anywhere from 232 up to 308. ASSESSMENT: 1. Acute gouty flare-up involving bilateral great toes and right ankle showing some improvement but continues to inhibit the patient to do much physical activity other than those laying in bed. 2. History of diabetes mellitus requiring insulin therapy with a recent episode of hyperosmolar state prior to admission to Swing Bed having been transferred to [facility] in the past for metabolic acidosis in [place] spending time in intensive care, showing improvement and then discharged to Swing Bed for continued rehabilitation. 3. Chronic history of hypokalemia. 4. History of chronic renal insufficiency with acute injury on admission with creatinine of 0.7.on Swing Bed. 5. History of fall with a head injury with a subarachnoid hemorrhage on previous admission, followup CT scan showed improvement with hemorrhage no longer being noted at admission to Swing Bed. 6. Chronic shoulder pain with dislocation, recurrent. 7. Chronic weakness precluding her safely being able to return home until after rehabilitation and strengthening has been completed through her Swing Bed admission. 8. Urinary tract infection on admission to Swing Bed with Proteus mirabilis showing a sensitivity pattern showing sensitive to everything but Macrobid with patient currently being on Keflex as well as doxycycline. 9. Skin abscess of the anterior chest wall with final culture showing MRSA with the patient having been started on doxycycline and gentamicin topical cream, showing improvement. PLAN: Will continue to follow the patient closely and monitor her blood sugars and adjust insulins accordingly. Will continue to treat her gout with Colchicine 0.6 mg twice a day and closely monitor. She is not a very good candidate for steroids as she has had a previous metabolic acidosis secondary to uncontrolled blood sugars. Hopefully tomorrow she will be able to participate with physical therapy. The wound on her chest is healing nicely. We will continue to monitor and treat it with doxycycline. We will continue with Keflex for the urinary tract infection until completion. Until discharge, we will follow the patient closely and treat appropriately #[id number] [facility]
[2016-05-08] MEDS: COLCHICINE 0.6 MG TAB PO SCH ×2 (11:23→20:31)
[2016-05-08] MEDS: DOXYCYCLINE HYCLATE CAP 100 MG CAP PO SCH ×2 (11:24→20:31)
[2016-05-08] MEDS: LISINOPRIL 10 MG TAB PO SCH (11:24)
[2016-05-08] MEDS: SPIRONOLACTONE 25 MG TAB PO SCH (11:24)
[2016-05-08] MEDS: CARVEDILOL 3.125 MG TAB PO SCH ×2 (11:25→20:31)
[2016-05-08] MEDS: ENOXAPARIN SODIUM 30 MG/0.3 ML SYG SUBCU SCH (11:25)
[2016-05-08] MEDS: GENTAMICIN 0.1% TOPICAL CREAM 15 GM TUBE TOP SCH ×4 (11:26→20:31)
[2016-05-08] MEDS: INSULIN DETEMIR 100 UNITS/ML PEN SUBCU SCH ×2 (11:26→21:10)
[2016-05-08] MEDS: FUROSEMIDE 40 MG TAB PO SCH (11:28)
[2016-05-08] MEDS: NYSTATIN POWDER 15GM BTTL TOP SCH ×2 (11:33→20:31)
[2016-05-08] MEDS: SODIUM CHLORIDE 0.9% (FLUSH) 10 ML SYG IV SCH ×2 (11:44→20:32)
[2016-05-08] MEDS: ACETAMINOPHEN 325 MG TAB PO PRN (22:11)
[2016-05-09] MEDS: CEPHALEXIN MONOHYDRATE 500 MG CAP PO SCH ×2 (00:01→12:04)
[2016-05-09] MEDS: OMEPRAZOLE CAP 20 MG CAP PO SCH (06:22)
[2016-05-09] MEDS: INSULIN LISPRO 100 UNITS/ML PEN SUBCU SCH ×7 (08:09→20:56)
[2016-05-09] MEDS: GENTAMICIN 0.1% TOPICAL CREAM 15 GM TUBE TOP SCH ×4 (09:29→20:36)
[2016-05-09] MEDS: INSULIN DETEMIR 100 UNITS/ML PEN SUBCU SCH ×2 (09:29→20:57)
[2016-05-09] MEDS: CARVEDILOL 3.125 MG TAB PO SCH ×2 (09:29→20:36)
[2016-05-09] MEDS: DOXYCYCLINE HYCLATE CAP 100 MG CAP PO SCH ×2 (09:30→20:36)
[2016-05-09] MEDS: SPIRONOLACTONE 25 MG TAB PO SCH (09:30)
[2016-05-09] MEDS: ENOXAPARIN SODIUM 30 MG/0.3 ML SYG SUBCU SCH (09:30)
[2016-05-09] MEDS: COLCHICINE 0.6 MG TAB PO SCH ×2 (09:30→20:36)
[2016-05-09] MEDS: FUROSEMIDE 40 MG TAB PO SCH (09:30)
[2016-05-09] MEDS: LISINOPRIL 10 MG TAB PO SCH (09:30)
[2016-05-09] MEDS: SODIUM CHLORIDE 0.9% (FLUSH) 10 ML SYG IV SCH ×2 (09:31→20:37)
[2016-05-09] MEDS: NYSTATIN POWDER 15GM BTTL TOP SCH ×2 (09:31→20:37)
[2016-05-09] MEDS ORDERED: GABAPENTIN 300 MG CAP ONE (11:22)
[2016-05-09] MEDS: GABAPENTIN 300 MG CAP PO SCH ×3 (11:27→20:36)
[2016-05-09] MEDS: LEVALBUTEROL NEBS 1.25 MG/3 ML VIAL INH SCH (21:25)
[2016-05-09] MEDS ORDERED: INSULIN DETEMIR 100 UNITS/ML PEN SUBCU ONE (22:15)
[2016-05-10] MEDS: CEPHALEXIN MONOHYDRATE 500 MG CAP PO SCH ×2 (00:04→12:17)
[2016-05-10] MEDS: ACETAMINOPHEN 325 MG TAB PO PRN (02:07)
[2016-05-10] MEDS: OMEPRAZOLE CAP 20 MG CAP PO SCH (06:08)
[2016-05-10] MEDS: INSULIN LISPRO 100 UNITS/ML PEN SUBCU SCH ×7 (07:12→21:20)
[2016-05-10] MEDS ORDERED: INSULIN DETEMIR 100 UNITS/ML PEN SUBCU SCH ×3 (08:25→21:00)
[2016-05-10] MEDS: COLCHICINE 0.6 MG TAB PO SCH ×2 (08:45→20:47)
[2016-05-10] MEDS: FUROSEMIDE 40 MG TAB PO SCH (08:45)
[2016-05-10] MEDS: LISINOPRIL 10 MG TAB PO SCH (08:45)
[2016-05-10] MEDS: SPIRONOLACTONE 25 MG TAB PO SCH (08:45)
[2016-05-10] MEDS: GENTAMICIN 0.1% TOPICAL CREAM 15 GM TUBE TOP SCH ×4 (08:46→20:47)
[2016-05-10] MEDS: CARVEDILOL 3.125 MG TAB PO SCH ×2 (08:46→20:47)
[2016-05-10] MEDS: GABAPENTIN 300 MG CAP PO SCH ×3 (08:47→20:47)
[2016-05-10] MEDS: SODIUM CHLORIDE 0.9% (FLUSH) 10 ML SYG IV SCH ×2 (08:47→20:48)
[2016-05-10] MEDS: ENOXAPARIN SODIUM 30 MG/0.3 ML SYG SUBCU SCH (08:47)
[2016-05-10] MEDS: NYSTATIN POWDER 15GM BTTL TOP SCH ×2 (08:47→20:48)
[2016-05-10] MEDS: DOXYCYCLINE HYCLATE CAP 100 MG CAP PO SCH ×2 (08:48→20:47)
--- NOTE | 2016-05-10 08:50 | PN ---
SUPERVISING PHYSICIAN: Antony Lambert MD DATE: 05/09/16 SUBJECTIVE: The patient is sitting up in her chair in her hospital room. She denies any shortness of breath, chest pain or abdominal pain. She has previously had pain in her right foot and since she has been given colchicine, her pain is much improved. She does say she has had some diabetic neuropathy that she has really had a problem with and now that her gout issues are resolved , she said she would like to try something for that. OBJECTIVE: VITAL SIGNS: Afebrile. Pulse 80. Blood pressure 100/65. Respiratory rate 18. O2 saturation 93% on room air. LUNGS: Essentially clear to auscultation. CARDIAC: Regular rate and rhythm. ABDOMEN: Soft, nontender, nondistended. Bowel sounds are positive. EXTREMITIES: No cyanosis, clubbing or edema. The redness to the right great toe is resolved. Bilateral pedal pulses are +2. NEUROLOGIC: Awake, alert and oriented times three. LABORATORY: Blood sugars are continuing to be from 142 to 367. There are no other labs or films to report. ASSESSMENT: 1. Acute gouty flare-up involving bilateral great toes and right ankle, improved, presently on colchicine. 2. History of diabetes mellitus, requiring insulin therapy. Her blood sugars have been running quite high, in the 300 range. 3. Chronic history of hypokalemia. 4. History of chronic renal insufficiency with acute injury on admission with a creatinine of 0.7 on Swing Bed. 5. History of fall with a head injury and a subarachnoid hemorrhage on previous admission. Followup CT scan showed improvement of the hemorrhage and no longer being noted on admission to Swing Bed. 6. Chronic shoulder pain with dislocation. 7. Chronic weakness requiring Swing Bed admission for rehabilitation and strengthening. 8. Urinary tract infection on admission to Swing Bed with proteus mirabilis and showing sensitivity pattern sensitive to everything but Macrobid and is currently on Keflex as well as doxycycline. 9. Skin abscess of left anterior chest wall with final cultures showing methicillin-resistant Staphylococcus aureus and the patient having been started on doxycycline and gentamicin topical cream, showing improvement. PLAN: We will continue to watch the patient closely and monitor her blood sugars. I have increased her long acting insulin. At some point, we may have to increase her sliding scale. At this point, her gout is improving greatly, so we will follow that and she will most likely need allopurinol or some Uloric. I have also started her on Neurontin for her diabetic neuropathy. She will continue her strengthening and condition per physical therapy. Dr. Lambert is the collaborating physician and available for consultation. #[id number] [facility]
[2016-05-10] MEDS: LEVALBUTEROL NEBS 1.25 MG/3 ML VIAL INH SCH (11:07)
[2016-05-10] MEDS ORDERED: LEVALBUTEROL NEBS 1.25 MG/3 ML VIAL INH PRN (12:28)
[2016-05-10] MEDS ORDERED: traMADol HCL 50 MG TAB PO PRN (16:10)
[2016-05-10] MEDS ORDERED: hydroCHLOROthiazide 25 MG TAB ONE (16:17)
[2016-05-10] MEDS: IV SET AND CAP CHANGE INJ INJ SCH (20:17)
[2016-05-11] MEDS: CEPHALEXIN MONOHYDRATE 500 MG CAP PO SCH ×3 (00:54→21:13)
[2016-05-11] MEDS: OMEPRAZOLE CAP 20 MG CAP PO SCH (06:08)
[2016-05-11] MEDS: INSULIN LISPRO 100 UNITS/ML PEN SUBCU SCH ×7 (07:20→21:12)
[2016-05-11] MEDS: GABAPENTIN 300 MG CAP PO SCH ×3 (08:53→21:13)
[2016-05-11] MEDS: FUROSEMIDE 40 MG TAB PO SCH (08:54)
[2016-05-11] MEDS: GENTAMICIN 0.1% TOPICAL CREAM 15 GM TUBE TOP SCH ×4 (08:54→21:14)
[2016-05-11] MEDS: CARVEDILOL 3.125 MG TAB PO SCH ×2 (08:54→21:14)
[2016-05-11] MEDS: SPIRONOLACTONE 25 MG TAB PO SCH (08:54)
[2016-05-11] MEDS: LISINOPRIL 10 MG TAB PO SCH (08:54)
[2016-05-11] MEDS: COLCHICINE 0.6 MG TAB PO SCH ×2 (08:54→21:14)
[2016-05-11] MEDS: ENOXAPARIN SODIUM 30 MG/0.3 ML SYG SUBCU SCH (08:55)
[2016-05-11] MEDS: NYSTATIN POWDER 15GM BTTL TOP SCH ×2 (08:55→21:15)
[2016-05-11] MEDS: INSULIN DETEMIR 100 UNITS/ML PEN SUBCU SCH ×2 (08:55→21:13)
[2016-05-11] MEDS: DOXYCYCLINE HYCLATE CAP 100 MG CAP PO SCH ×2 (09:09→21:13)
[2016-05-11] MEDS: SODIUM CHLORIDE 0.9% (FLUSH) 10 ML SYG IV SCH ×2 (09:09→21:15)
--- NOTE | 2016-05-11 20:54 | PN ---
DATE: 05/11/16 SUPERVISING PHYSICIAN: Uri Salazar M.D. SUBJECTIVE: The patient is sitting up in her chair in her hospital room. She states she is feeling better and getting stronger daily. She denies any chest pain, shortness of breath, nausea or vomiting. States that the pain in her foot due to gout is improving daily and she also says she is acclimating to the Neurontin that I had given her for diabetic neuropathy. OBJECTIVE: VITAL SIGNS: She is afebrile, heart rate 73, blood pressure 119/72, respiratory rate 20, O2 sat 95% on room air. GENERAL: This is a 70 year-old female patient sitting up in her hospital chair in no acute distress. RESPIRATORY: Clear to auscultation bilaterally. CARDIAC: Regular rate and rhythm. ABDOMEN: Soft, nondistended, non-tender. Bowel sounds are positive. EXTREMITIES: No cyanosis, clubbing or edema. LABORATORY: Blood sugars have slowly come down since we have gotten her on the appropriate dosing of her Levemir and at this point it is 125. There are no other labs and films to report at this time. ASSESSMENT: 1. Acute gouty flare-up involving bilateral great toes and right ankle, improved presently on Colchicine. 2. History of diabetes mellitus requiring insulin therapy. Her blood sugars have stabilized now as we have titrated up her Levemir. 3. Chronic history of hypokalemia. 4. History of chronic renal insufficiency with a creatinine of 0.7 on Swing Bed. 5. History of fall with head injury and subarachnoid hemorrhage on previous admission. Followup CT scan showed improvement of the hemorrhage and no longer being noted on admission to Swing Bed. 6. Chronic shoulder pain with dislocation. 7. Chronic weakness requiring Swing Bed admission for rehab and strengthening. 8. Urinary tract infection on admission to Swing Bed with Proteus mirabilis and showed sensitivity pattern to everything but Macrobid and is currently on Keflex as well as Doxycycline. 9. Skin abscess of the left anterior chest wall with final culture showing Methicillin resistant Staphylococcus aureus and is presently on Doxycycline and Gentamicin topical cream. PLAN: We will continue to monitor the patient closely encouraging good pulmonary toilet. She is continuing with Physical Therapy for conditioning and strengthening. She is slowly progressing and I believe she will be able to be discharged in the next few days. Otherwise we will monitor closely and followup as needed. Dr. Salazar is the collaborating physician available for consultation. #[id number] [facility]
[2016-05-12] MEDS: OMEPRAZOLE CAP 20 MG CAP PO SCH (05:59)
[2016-05-12] MEDS: INSULIN LISPRO 100 UNITS/ML PEN SUBCU SCH ×5 (07:56→21:28)
[2016-05-12] MEDS: LISINOPRIL 10 MG TAB PO SCH (09:15)
[2016-05-12] MEDS: COLCHICINE 0.6 MG TAB PO SCH ×2 (09:15→21:28)
[2016-05-12] MEDS: CARVEDILOL 3.125 MG TAB PO SCH ×2 (09:15→21:28)
[2016-05-12] MEDS: SPIRONOLACTONE 25 MG TAB PO SCH (09:15)
[2016-05-12] MEDS: FUROSEMIDE 40 MG TAB PO SCH (09:16)
[2016-05-12] MEDS: INSULIN DETEMIR 100 UNITS/ML PEN SUBCU SCH ×2 (09:17→21:30)
[2016-05-12] MEDS: GENTAMICIN 0.1% TOPICAL CREAM 15 GM TUBE TOP SCH ×4 (09:18→21:28)
[2016-05-12] MEDS: ENOXAPARIN SODIUM 30 MG/0.3 ML SYG SUBCU SCH (09:18)
[2016-05-12] MEDS: GABAPENTIN 300 MG CAP PO SCH ×2 (09:19→21:30)
[2016-05-12] MEDS: CEPHALEXIN MONOHYDRATE 500 MG CAP PO SCH ×2 (09:19→21:30)
[2016-05-12] MEDS: NYSTATIN POWDER 15GM BTTL TOP SCH ×2 (09:30→21:31)
[2016-05-12] MEDS: SODIUM CHLORIDE 0.9% (FLUSH) 10 ML SYG IV SCH ×2 (09:30→21:31)
[2016-05-12] MEDS: DOXYCYCLINE HYCLATE CAP 100 MG CAP PO SCH ×2 (09:32→21:30)
--- NOTE | 2016-05-12 11:41 | PN ---
SUPERVISING PHYSICIAN: Antony Lambert MD DATE: 05/12/16 SUBJECTIVE: The patient is sitting in her chair in her hospital room. She has no complaints of shortness of breath, chest pain, nausea or vomiting. The pain in her feet is much improved although she does still have some pain there, but it is improving daily. OBJECTIVE: VITAL SIGNS: Afebrile. Heart rate 67. Blood pressure 115/65. Respiratory rate 20. O2 saturation 96% on 2 liters nasal cannula. LUNGS: Clear to auscultation bilaterally. CARDIAC: Regular rate and rhythm. ABDOMEN: Soft, nontender, nondistended. Bowel sounds are positive. NEUROLOGIC: Awake, alert and oriented times three. LABORATORY: Blood sugars have stabilized somewhat, although her blood sugar last night was 315 at h.s., but today they have been less than 200. There are no other labs or films to report. ASSESSMENT: 1. Acute gouty flare-up involving bilateral great toes and right ankle that has improved greatly. She is presently on colchicine. 2. History of diabetes mellitus requiring insulin therapy. Her blood sugars have now stabilized and she has been on regular sliding scale and her Levemir is at 30 units b.i.d. 3. History chronic hypokalemia. 4. History of chronic renal insufficiency. 5. History of fall with head injury and subarachnoid hemorrhage on previous admission. Followup CT scan shows improvement of the hemorrhage and no longer being noted on admission to Swing Bed. 6. Chronic shoulder pain. 7. Chronic weakness requiring Swing Bed admission for rehab and strengthening. 8. Urinary tract infection on admission to Swing Bed with proteus mirabilis and showing sensitivity pattern to everything but Macrobid and currently on Keflex and doxycycline. 9. Skin abscess of the left anterior chest wall with final culture showing methicillin-resistant Staphylococcus aureus and presently on doxycycline and gentamicin topical cream. PLAN: We will plan for the patient to be discharged on Sunday or Sunday. Her goal was originally 150 feet and physical therapy was only able to ambulate her 90 feet. There is some concern with her going home and getting enough activity over the weekend and that she may not be safe to go home, especially since she had the gout flare-up as well as her neuropathy over the last several days that most likely have hindered progress. She occasionally does get weak when she sits up, but we will continue on her Neurontin at the present dosage since she will be in the hospital until Sunday and will evaluate at that time if we need to decrease the dose, although she states her neuropathy is so much better on the Neurontin. Right now, she is on colchicine for her gout. It would probably be beneficial for her to be started on Uloric or allopurinol after the gout flare as subsided. May consider starting her on one of those next week prior to discharge. Her progress with physical therapy is improving very slowly , but is improving and I feel that she will be able to be discharged on Sunday. She has also requested [facility], so we have contacted them for an evaluation as well as physical therapy upon discharge. Meanwhile, we will continue to monitor the patient closely and followup as needed. Dr. Lambert is the collaborating physician and available for consultation. #[id number] [facility]
[2016-05-12] MEDS ORDERED: GABAPENTIN 100 MG CAP ONE (14:38)
[2016-05-12] MEDS: GABAPENTIN 100 MG CAP PO SCH (14:43)
[2016-05-13] MEDS: ACETAMINOPHEN 325 MG TAB PO PRN (05:40)
[2016-05-13] MEDS: OMEPRAZOLE CAP 20 MG CAP PO SCH (06:05)
[2016-05-13] MEDS: GENTAMICIN 0.1% TOPICAL CREAM 15 GM TUBE TOP SCH ×4 (08:12→21:09)
[2016-05-13] MEDS: INSULIN LISPRO 100 UNITS/ML PEN SUBCU SCH ×4 (08:13→21:30)
[2016-05-13] MEDS: INSULIN DETEMIR 100 UNITS/ML PEN SUBCU SCH ×2 (08:13→21:30)
[2016-05-13] MEDS: SPIRONOLACTONE 25 MG TAB PO SCH (08:32)
[2016-05-13] MEDS: COLCHICINE 0.6 MG TAB PO SCH ×2 (08:32→21:09)
[2016-05-13] MEDS: GABAPENTIN 100 MG CAP PO SCH ×2 (08:32→15:12)
[2016-05-13] MEDS: FUROSEMIDE 40 MG TAB PO SCH (08:33)
[2016-05-13] MEDS: LISINOPRIL 10 MG TAB PO SCH (08:33)
[2016-05-13] MEDS: ENOXAPARIN SODIUM 30 MG/0.3 ML SYG SUBCU SCH (08:33)
[2016-05-13] MEDS: DOXYCYCLINE HYCLATE CAP 100 MG CAP PO SCH ×3 (08:33→21:11)
[2016-05-13] MEDS: CEPHALEXIN MONOHYDRATE 500 MG CAP PO SCH ×2 (08:33→21:09)
[2016-05-13] MEDS: CARVEDILOL 3.125 MG TAB PO SCH ×2 (08:33→21:09)
[2016-05-13] MEDS: SODIUM CHLORIDE 0.9% (FLUSH) 10 ML SYG IV SCH (08:34)
[2016-05-13] MEDS: NYSTATIN POWDER 15GM BTTL TOP SCH ×2 (08:34→21:30)
[2016-05-13] MEDS: IV SET AND CAP CHANGE INJ INJ SCH (20:30)
[2016-05-13] MEDS: GABAPENTIN 300 MG CAP PO SCH (21:09)
[2016-05-14] MEDS: OMEPRAZOLE CAP 20 MG CAP PO SCH (06:06)
[2016-05-14] MEDS: INSULIN LISPRO 100 UNITS/ML PEN SUBCU SCH ×4 (08:00→21:16)
[2016-05-14] MEDS: GENTAMICIN 0.1% TOPICAL CREAM 15 GM TUBE TOP SCH ×4 (09:09→21:12)
[2016-05-14] MEDS: INSULIN DETEMIR 100 UNITS/ML PEN SUBCU SCH ×2 (09:09→21:16)
[2016-05-14] MEDS: SPIRONOLACTONE 25 MG TAB PO SCH (09:10)
[2016-05-14] MEDS: FUROSEMIDE 40 MG TAB PO SCH (09:10)
[2016-05-14] MEDS: GABAPENTIN 100 MG CAP PO SCH ×2 (09:10→15:15)
[2016-05-14] MEDS: COLCHICINE 0.6 MG TAB PO SCH ×2 (09:10→21:11)
[2016-05-14] MEDS: CARVEDILOL 3.125 MG TAB PO SCH ×2 (09:10→21:11)
[2016-05-14] MEDS: LISINOPRIL 10 MG TAB PO SCH (09:10)
[2016-05-14] MEDS: ENOXAPARIN SODIUM 30 MG/0.3 ML SYG SUBCU SCH (09:11)
[2016-05-14] MEDS: NYSTATIN POWDER 15GM BTTL TOP SCH ×2 (09:13→21:12)
[2016-05-14] MEDS: ALLOPURINOL 100 MG TAB PO SCH (12:22)
--- NOTE | 2016-05-14 13:21 | PN ---
DATE: 05/14/16 SUBJECTIVE: The patient is resting. She has had several days of quite severe discomfort in her lower extremities interpreted as an acute gouty arthritis. This has seemingly responded to Colchicine antiinflammatory treatment course. This will be continued as Allopurinol is added to assist with uric acid metabolism with uric acid to be checked in the morning on fasting lab studies. Her appetite is fairly good and she has shown some slow improvement in her daily fasting sugars. OBJECTIVE: Afebrile, pulse 76, blood pressure 105/62, pulse oximetry 97% room air. Weight is down to 83.96 kilos. The patient is resting and shows less discomfort in her lower extremities compared to a few days ago. She still requires continued rehabilitation to the point of independence to assist in making sure she does not fall and injure herself. ASSESSMENT: 1. Acute symptomatic gouty arthritis exacerbation involving both great toes and right ankle, improved with antiinflammatory medicines currently on Colchicine with Allopurinol added. 2. History of diabetes mellitus on insulin therapy with a history of hyperosmolar state and steady alteration of diet and insulin dosings to assist with ongoing control now on twice daily Levemir injections. 3. History of chronic hypokalemia. 4. History of chronic renal insufficiency to be reevaluated in the morning. 5. History of a fall with head injury and subarachnoid hemorrhage showing CT scan improvement of the hemorrhage. 6. Chronic shoulder pain. 7. Chronic weakness requiring Swing Bed rehabilitation for strengthening and assistance with activities of daily living. 8. History of urinary tract infection with Proteus mirabilis sensitivity to everything but Macrobid currently on cephalosporin and Doxycycline. 9. Skin lesion with abscess left anterior chest wall with culture showing a Methicillin resistant Staphylococcus aureus being treated locally with nursing care, wound care, Doxycycline and Gentamicin topical cream. PLAN: The patient eventually will be discharged home to have followup with Dr. Altman in the clinic. She will continue and require benefit of Home Health ongoing care and close observation of her diabetes. Allopurinol is to be continued and recheck of uric acid tomorrow. Discuss with therapist to determine how the patient is progressing with their goal of rehabilitation. #[id number] [facility]
[2016-05-14] MEDS: GABAPENTIN 300 MG CAP PO SCH (21:12)
[2016-05-15] MEDS: OMEPRAZOLE CAP 20 MG CAP PO SCH (06:08)
[2016-05-15] MEDS: INSULIN LISPRO 100 UNITS/ML PEN SUBCU SCH ×4 (07:42→21:24)
[2016-05-15] MEDS: COLCHICINE 0.6 MG TAB PO SCH ×2 (09:59→21:21)
[2016-05-15] MEDS: GABAPENTIN 100 MG CAP PO SCH ×2 (09:59→15:28)
[2016-05-15] MEDS: SPIRONOLACTONE 25 MG TAB PO SCH ×2 (09:59→11:10)
[2016-05-15] MEDS: NYSTATIN POWDER 15GM BTTL TOP SCH ×2 (09:59→21:29)
[2016-05-15] MEDS: LISINOPRIL 10 MG TAB PO SCH ×2 (09:59→11:13)
[2016-05-15] MEDS: CARVEDILOL 3.125 MG TAB PO SCH ×3 (10:00→21:21)
[2016-05-15] MEDS: ENOXAPARIN SODIUM 30 MG/0.3 ML SYG SUBCU SCH (10:00)
[2016-05-15] MEDS: GENTAMICIN 0.1% TOPICAL CREAM 15 GM TUBE TOP SCH ×4 (10:01→21:22)
[2016-05-15] MEDS: FUROSEMIDE 40 MG TAB PO SCH ×2 (10:03→11:14)
[2016-05-15] MEDS: INSULIN DETEMIR 100 UNITS/ML PEN SUBCU SCH ×2 (10:06→21:21)
[2016-05-15] MEDS: ALLOPURINOL 100 MG TAB PO SCH (10:12)
--- NOTE | 2016-05-15 19:33 | PN ---
DATE: 05/15/16 SUBJECTIVE: The patient is sitting up having just completed a meal. Her appetite is much improved today. She is less somnolent today. Her Neurontin has been decreased a little bit which has helped her to be a little more functional at this time. Early this morning, she had a significantly low sugar in the 50s as well as systolic in the 90s. Because of this, some significant changes had to be made to her blood pressure medicine which includes decreasing the Aldactone to 25 mg a day, Lasix to 20 mg a day, the Lisinopril to only 5 mg from 20 mg a day and the Coreg to 1/2 of the current dose with observation to continue. OBJECTIVE: Afebrile, blood pressure 101/61, pulse oximetry 97% on room air. The patient was able to ambulate to the nursing station and back to her room at the end of the mckeon and was quite tired, but is showing some improvement in her general strength. She lives by herself and is actively working with [employer] [facility] [facility] where her son is also a patient and will need to be a lot stronger before she will safely be able to return home. ABDOMEN: Soft. LUNGS: Clear. HEART: Tones are regular. LABORATORY: White count 6,900, hemoglobin 12.1. Chemistry this morning shows potassium 4.4, BUN is up to 50, creatinine 1.46 hopefully improving as we cut back on some of the diuresis. Her fasting sugar this morning earlier was 56 and is up to 269 as she has been eating improved and is currently on 30 units of Levemir twice daily with sliding scale augmentation and an h.s. snack. ASSESSMENT: 1. History of significant diabetes mellitus on insulin therapy with a history of a hyperosmolar state with ongoing adjustments of the medicines and hypoglycemia noted earlier today with further adjustments of diet, activity and insulin to be made. 2. Acute symptomatic gouty arthritis showing some improvement located in both toes and the right ankle showing improvement with Colchicine and now with Allopurinol being added. Uric acid elevated at 8.1. 3. History of chronic hypokalemia. 4. Chronic renal insufficiency showing some worsening possibly from prerenal azotemia with adjustment in medication program in an attempt to assist. 5. History of fall with head injury and subarachnoid hemorrhage showing resolution on repeat CT scans. 6. Chronic shoulder pain. 7. Chronic weakness requiring Swing Bed rehabilitation for strengthening and assistance with activities of daily living. 8. History of urinary tract infection with Proteus mirabilis sensitive to most medications, except resistant to Macrobid currently on Cephalosporin and Doxycycline. 9. Skin lesion in the anterior chest showing steady improvement with closing from what appears to be a skin infection with Methicillin resistant Staphylococcus aureus treated with local skin care, wound care and Doxycycline and Gentamicin topical cream. PLAN: The patient very much wishes to continue rehabilitation until she is able to feel strong enough to safely return home and to her work at [employer] [facility] [facility]. Continue evaluation. Discuss with Physical Therapist in the morning. #[id number] EDY
[2016-05-15 19:43] VITALS: O2SAT 100
[2016-05-15] MEDS: GABAPENTIN 300 MG CAP PO SCH (21:21)
[2016-05-16] MEDS: OMEPRAZOLE CAP 20 MG CAP PO SCH (06:08)
[2016-05-16 07:01] VITALS: BP 140/63; TEMP 98.3
[2016-05-16] MEDS: INSULIN LISPRO 100 UNITS/ML PEN SUBCU SCH ×3 (07:54→16:31)
[2016-05-16] MEDS: ENOXAPARIN SODIUM 30 MG/0.3 ML SYG SUBCU SCH (08:50)
[2016-05-16] MEDS: CARVEDILOL 3.125 MG TAB PO SCH (08:54)
[2016-05-16] MEDS: ALLOPURINOL 100 MG TAB PO SCH (08:54)
[2016-05-16] MEDS: COLCHICINE 0.6 MG TAB PO SCH (08:54)
[2016-05-16] MEDS: GABAPENTIN 100 MG CAP PO SCH ×2 (08:54→15:00)
[2016-05-16] MEDS: GENTAMICIN 0.1% TOPICAL CREAM 15 GM TUBE TOP SCH ×3 (08:59→17:14)
[2016-05-16] MEDS ORDERED: LISINOPRIL 5 MG TAB PO SCH (09:00)
[2016-05-16] MEDS ORDERED: FUROSEMIDE 40 MG TAB PO SCH (09:00)
[2016-05-16] MEDS ORDERED: SPIRONOLACTONE 25 MG TAB PO SCH (09:00)
[2016-05-16] MEDS: INSULIN DETEMIR 100 UNITS/ML PEN SUBCU SCH (09:03)
[2016-05-16] MEDS: NYSTATIN POWDER 15GM BTTL TOP SCH (09:06)
--- NOTE | 2016-05-16 16:29 | DS ---
DISCHARGE DIAGNOSIS: 1. History of significant diabetes mellitus on insulin therapy with a history of a hyper- osmolar state requiring ongoing adjustments of medications, diet, activity and insulin administration. 2. Acute symptomatic gouty arthritis showing improvement yet located in both large toes and right ankle, and requiring ongoing Allopurinol to help lower uric acid levels. 3. History of chronic hypokalemia. 4. Chronic renal insufficiency with continued followup in the clinic suggested. 5. History of a fall at the time of her hyperosmolar state with head injury and subarachnoid hemorrhage showing radiographic resolution on repeat CT scans. 6. Chronic shoulder pain. 7. Chronic weakness requiring Swing Bed rehabilitation for strengthening and assistance with activities of daily living until the patient can safely return home where she lives at home alone. 8. History of urinary tract infection with Proteus mirabilis sensitive to most medications except resistant to Macrobid and treated with a cephalosporin and Doxycycline. 9. Skin lesion in the anterior chest showing steady improvement with closing with continued treatment with diluted Hibiclens and wound care with Gentamicin topical cream. May continue at home. HISTORY OF PRESENT ILLNESS: This 70 year-old white female was admitted to Swing Bed rehabilitation from [facility] in [place] after having spent 5 days there after significant injury with subarachnoid hemorrhage subsequently showing clearing on CT scans. She had significant abnormal diabetes presentation with metabolic acidosis and hyperosmolar state with sugars over 900 requiring specialized treatment in the ICU. For a period of time she required rehabilitation and was admitted to our hospital on Swing Bed status. She lives at home alone and would require ongoing rehabilitation until safe to be able to return home. This increased strength and abilities and confidence slowly increased to the point where she was able to be discharged home on the day of discharge at which time she was ready to be discharged. LABORATORY: White count on admission was 11,100 with 66% neutrophils decreasing to 6,900 with 33% neutrophils with a hemoglobin of 12.1 at discharge. Chemistries showed a multiple day course of sugar findings ranging between the 70s and up to the 250s and 300s during her stay requiring ongoing adjustments of her insulin. At the time of discharge, her potassium was 4.4, BUN was up to 50 probably from some diuresis and creatinine of 1.46 with repeat followup suggested. Uric acid is elevated at 8.1. Urinalysis initially showed pyuria and 4+ bacteriuria while repeat showed a marked improvement. The original urine showed Proteus mirabilis with resistance noted to nitrofurantoin , otherwise sensitive. The wound on the anterior chest grew Methicillin resistant Staphylococcus aureus which was topically and locally treated while MRSA surveillance culture was negative. X-rays of the foot failed to reveal any significant abnormalities except as mentioned in the x-ray reports. HOSPITAL COURSE: The patient was feeling much improved on the morning of discharge and was ready to continue with outpatient followup with Dr. Altman. PLAN: Plan to discharge home with followup with Dr. Altman within the next week. [facility] will assist with her care at home. She is going to continue on a diabetic diet and increase activity as tolerated until she is able to return to work. Please refer to home medications which have been adapted somewhat because of her very low blood pressure in an effort to prevent it from going even lower. Medications including Aldactone, Lasix, Lisinopril and Coreg have been decreased in the dose previously given and will require ongoing blood pressure followup and Dr. Altman will also be available to assist with diabetes management as well. No falling is important. Return if not improving. #[id number] [facility]
== END 2016-05-16 17:55 | disposition home or self-care (01) | DRG 683 ==
LOC: MS 17:05
PROVIDERS: ADMIT Emergency Medicine; ATTEND Emergency Medicine
DX: N17.9 Acute kidney failure, unspecified (principal); I13.0 Hypertensive heart and chronic kidney disease with heart failure and stage 1 through stage 4 chronic kidney disease, or unspecified chronic kidney disease; I50.32 Chronic diastolic (congestive) heart failure; N39.0 Urinary tract infection, site not specified; L02.213 Cutaneous abscess of chest wall; E87.6 Hypokalemia; R53.1 Weakness; G40.909 Epilepsy, unspecified, not intractable, without status epilepticus; N18.9 Chronic kidney disease, unspecified; E78.5 Hyperlipidemia, unspecified; M10.9 Gout, unspecified; B96.4 Proteus (mirabilis) (morganii) as the cause of diseases classified elsewhere; Z16.29 Resistance to other single specified antibiotic; E11.22 Type 2 diabetes mellitus with diabetic chronic kidney disease; Z60.2 Problems related to living alone; E66.9 Obesity, unspecified; E11.40 Type 2 diabetes mellitus with diabetic neuropathy, unspecified; Z88.8 Allergy status to other drugs, medicaments and biological substances; Z88.0 Allergy status to penicillin; Z88.2 Allergy status to sulfonamides; Z88.5 Allergy status to narcotic agent; Z91.018 Allergy to other foods; Z86.718 Personal history of other venous thrombosis and embolism; Z87.820 Personal history of traumatic brain injury; Z68.34 Body mass index [BMI] 34.0-34.9, adult

== ENCOUNTER → 2016-05-23 | Outpatient (CLI) | payer MEDICARE | END | disposition home or self-care (01) | LOC: YCHH 09:29 | PROVIDERS: ATTEND Family Medicine | DX: D64.9 Anemia, unspecified (principal); N18.9 Chronic kidney disease, unspecified; E11.9 Type 2 diabetes mellitus without complications; E53.8 Deficiency of other specified B group vitamins; E78.5 Hyperlipidemia, unspecified; M10.9 Gout, unspecified; D50.8 Other iron deficiency anemias ==

== ENCOUNTER → 2016-05-29 | Outpatient (CLI) | payer MEDICARE ==
--- NOTE | 2016-05-29 16:08 | US ---
EXAM DESCRIPTION: Venous,Lower Extremity LT CLINICAL HISTORY: LE EDEMA COMPARISON: None Available. TECHNIQUE: Left lower extremity venous ultrasound was performed. Static man scale, color and spectral doppler images were saved to the patients medical record. FINDINGS: There is no DVT identified. There is normal color flow observed with good flow augmentation. All deep veins compress normally. IMPRESSION: Negative for left lower extremity DVT Electronically signed by: Julio Cesar Ferrell MD 05/29/2016 4:07 PM CDT
--- NOTE | 2016-05-29 16:10 | US ---
EXAM DESCRIPTION: Venous,Lower Extremity RT CLINICAL HISTORY: LE EDEMA COMPARISON: None Available. TECHNIQUE: Right lower extremity venous ultrasound was performed. Static man scale, color and spectral doppler images were saved to the patients medical record. FINDINGS: There is no DVT identified. There is normal color flow observed with good flow augmentation. All deep veins compress normally. IMPRESSION: Negative for right lower extremity DVT Electronically signed by: Julio Cesar Ferrell MD 05/29/2016 4:08 PM CDT
== END | disposition home or self-care (01) ==
LOC: US 13:30
PROVIDERS: ATTEND Family Medicine
DX: R60.9 Edema, unspecified (principal)

== ENCOUNTER → 2016-09-05 | Outpatient (CLI) | payer MEDICARE | LOC: YCHH 09:11 | PROVIDERS: ATTEND Family Medicine | DX: E11.40 Type 2 diabetes mellitus with diabetic neuropathy, unspecified (principal); I10 Essential (primary) hypertension; E78.5 Hyperlipidemia, unspecified; I60.9 Nontraumatic subarachnoid hemorrhage, unspecified ==

== ENCOUNTER → 2016-12-06 | Outpatient (CLI) | payer MEDICARE | END | disposition home or self-care (01) | LOC: YCHH 09:39 | PROVIDERS: ATTEND Family Medicine | DX: E11.40 Type 2 diabetes mellitus with diabetic neuropathy, unspecified (principal); M10.071 Idiopathic gout, right ankle and foot; E78.2 Mixed hyperlipidemia; I10 Essential (primary) hypertension; D64.9 Anemia, unspecified ==

== ENCOUNTER 2016-12-12 12:36 | Emergency (ER) | payer MEDICARE ==
[2016-12-12] MEDS ORDERED: DEXTROSE 50% 25 GM/50 ML SYG IV ONE ×2 (12:55→13:11)
[2016-12-12 13:09] VITALS: TEMP 96.2
--- NOTE | 2016-12-12 13:17 | ED.PDOC ---
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 GRANDDAUGHTER DIRECTED HER TO THE ER. PT STATES USUALLY GETS DRY MOUTH AND BLURRY VISION PRIOR TO EPISODES BUT NO WARNING THIS TIME. H/O DM. BS 94 THIS AM. PT SIMILAR EPISODES X 3 PAST MONTH. SHE HAS AN APPT WITH HER CLINICAL EDITOR TOMORROW. WE GAVE PT AMP D50 UPON ARRIVAL AND NOW SHE FEELS BACK TO NL. Timing/Duration: other - OTOLARYNGOLOGY REP Severity: severe Improving Factors: eating Associated Symptoms: denies symptoms Allergies/Adverse Reactions: Allergies [place] Allergy (Severe, Verified 04/26/16 08:07) Amlodipine [From Norvasc] Allergy (Verified 04/26/16 08:07) Codeine Allergy (Verified 04/26/16 08:07) Diazepam [From Valium] Allergy (Verified 04/26/16 08:07) Penicillins Allergy (Verified 04/26/16 08:07) Phenytoin [From Dilantin] Allergy (Verified 04/26/16 08:07) Sulfa Antibiotics Allergy (Verified 04/26/16 08:07) oregano Allergy (Uncoded 04/26/16 08:07) Home Medications: Ambulatory Orders B-Complex W/ Folic Acid [B-Complex] 1 tab PO DAILY 01/28/15 Simvastatin [Zocor] 20 mg PO BEDTIME 01/28/15 Folic Acid-Vitamin B6-Vitamin [B Complex/Folic Acid 500-5-200 Mcg-mg-Mcg] 1 ea PO DAILY 05/01/16 Insulin Detemir [Levemir Pen] 30 unit SUBCU BID 05/01/16 Allopurinol [Zyloprim] 200 mg PO DAILY #60 tab 05/16/16 Carvedilol [Coreg] 3.125 mg PO BID #0 tab 05/16/16 Furosemide Tab [Lasix Tab] 20 mg PO DAILY #0 tab 05/16/16 Gabapentin [Neurontin] 100 mg PO BID #60 cap 05/16/16 Lisinopril [Prinivil] 5 mg PO DAILY #30 tab 05/16/16 Spironolactone [Aldactone] 25 mg PO DAILY #0 tab 05/16/16 Review of Systems - Review of Systems Constitutional: Denies: chills, fever EENTM: Denies: blurred vision, ear pain Respiratory: Denies: cough, short of breath Cardiology: Denies: chest pain, palpitations Gastrointestinal/Abdominal: Denies: abdominal pain, nausea, vomiting Genitourinary: States: no symptoms reported Musculoskeletal: States: no symptoms reported Skin: States: no symptoms reported Neurological: Denies: headache, numbness, paresthesia, tremors, weakness Endocrine: Denies: excessive sweating, flushing, increased hunger, increased thirst, increased urine Hematologic/Lymphatic: States: no symptoms reported All other Systems: Reviewed and Negative Past Medical History (General) - Patient Medical History Hx Seizures: No Hx Stroke: No Hx Asthma: No Hx of COPD: Yes Hx Cardiac Disorders: No Hx Congestive Heart Failure: Yes Hx Pacemaker: No Hx Hypertension: Yes Hx Diabetes: Yes Hx Cancer: Yes - Melanoma Hx MRSA: Yes - Chest Lesion 2017 MRSA Source:: Wound - Vaccination History Hx Influenza Vaccination: No Hx Pneumococcal Vaccination: Yes - Social History Hx Tobacco Use: No Hx Alcohol Use: No Hx Substance Use: No Hx Physical Abuse: No Hx Emotional Abuse: No Family Medical History - Family History Mother Family History: Unknown Living Status: Hx Cardiac Disease: Yes - mom Hx Family Diabetes: Yes - dad Hx Family Cancer: Yes - basal cell ca-dad;uterine ca-sister,mother Physical Exam - Physical Exam General Appearance: Alert, No apparent distress Eye Exam: bilateral normal Ears, Nose, Throat: hearing grossly normal, normal ENT inspection, normal pharynx Neck: non-tender, full range of motion Respiratory: lungs clear, normal breath sounds Cardiovascular/Chest: normal peripheral pulses, regular rate, rhythm, no edema, no gallop, no JVD, no murmur Peripheral Pulses: radial,right: 2+, radial,left: 2+ Gastrointestinal/Abdominal: normal bowel sounds, non tender, soft Extremity: normal range of motion, non-tender, normal inspection, pedal edema Neurologic: merchant tailor II-XII nml as tested, no motor/sensory deficits, alert, normal mood/affect, oriented x 3 Skin Exam: normal color, warm/dry Lymphatic: no adenopathy Progress - Progress Progress: 12/12/16 13:34 BS INCREASED FROM 40 UP TO 94 AFTER AMP D50. PT IS BACK TO COHERENT BASELINE FUNCTION WITH 100% RECOVERY. WE WILL GIVE LUNCH TRAY AND RECHECK BS. IF PT STILL FEELS NL AND BS WITHIN APPROPRIATE DM LIMITS, WILL DC TO HOME. PT STATES SHE KEEPS GLUCOSE TABS WITH HER AT ALL TIMES. 12/12/16 15:37 REPEAT BS 72. BS IS HOLDING STEADY. PT FEELS WELL. SAFE TO DC TO HOME. PT STATES SHE WILL EAT AGAIN WHEN SHE GETS HOME AND WILL HAS APPT W/ ENDO TOMORROW. Departure - Departure Clinical Impression: Hypoglycemia, IDDM (insulin dependent diabetes mellitus) Disposition: Discharge to Home or Self Care Condition: Good Departure Forms: ED Discharge - Pt. Copy, Patient Portal Self Enrollment Instructions: DI for Hypoglycemia Diet: resume usual diet Activity: increase activity as tolerated Referrals: Jordin Altman III, MD [Primary Care Provider] - 1-2 Days Home Medications: Ambulatory Orders B-Complex W/ Folic Acid [B-Complex] 1 tab PO DAILY 01/28/15 Simvastatin [Zocor] 20 mg PO BEDTIME 01/28/15 Folic Acid-Vitamin B6-Vitamin [B Complex/Folic Acid 500-5-200 Mcg-mg-Mcg] 1 ea PO DAILY 05/01/16 Insulin Detemir [Levemir Pen] 30 unit SUBCU BID 05/01/16 Allopurinol [Zyloprim] 200 mg PO DAILY #60 tab 05/16/16 Carvedilol [Coreg] 3.125 mg PO BID #0 tab 05/16/16 Furosemide Tab [Lasix Tab] 20 mg PO DAILY #0 tab 05/16/16 Gabapentin [Neurontin] 100 mg PO BID #60 cap 05/16/16 Lisinopril [Prinivil] 5 mg PO DAILY #30 tab 05/16/16 Spironolactone [Aldactone] 25 mg PO DAILY #0 tab 05/16/16 Additional Instructions: Please inform your director data processing tomorrow that your blood sugar was 40 upon presentation to the ER.
[2016-12-12 15:09] VITALS: O2SAT 99
[2016-12-12 15:56] VITALS: BP 131/54
== END 2016-12-12 15:55 | disposition home or self-care (01) ==
LOC: ER 12:36
DX: E11.649 Type 2 diabetes mellitus with hypoglycemia without coma (principal); J44.9 Chronic obstructive pulmonary disease, unspecified; I11.0 Hypertensive heart disease with heart failure; I10 Essential (primary) hypertension; Z79.4 Long term (current) use of insulin; Z85.820 Personal history of malignant melanoma of skin; Z88.0 Allergy status to penicillin; Z88.2 Allergy status to sulfonamides
CPT/HCPCS: 36416; 82948; J7799

== ENCOUNTER → 2016-12-13 | Outpatient (CLI) | payer MEDICARE | LOC: GMAL 15:02 | PROVIDERS: ATTEND Family Medicine | DX: I50.9 Heart failure, unspecified (principal) ==

== ENCOUNTER → 2017-03-15 | Outpatient (CLI) | payer MEDICARE | END | disposition home or self-care (01) | LOC: GMAL 16:42 | PROVIDERS: ATTEND Family Medicine | DX: M10.9 Gout, unspecified (principal) ==

== ENCOUNTER → 2017-03-21 | Outpatient (CLI) | payer MEDICARE ==
--- NOTE | 2017-03-22 09:35 | US ---
EXAM DESCRIPTION: Carotid Duplex: ULTRASOUND. CLINICAL HISTORY: STENOSIS COMPARISON: None. TECHNIQUE: Transcutaneous scanning utilizing 2-dimensional and Doppler modes to evaluate the bilateral carotid systems and vertebral arteries. Percentage of diameter of stenosis or no stenosis recorded will be based upon NASCET criteria. FINDINGS: Peak systolic/end diastolic (CM-Sec) CCA Right 76/20 Left 82/22. ICA Right proximal 58/19, mid 64/14. Left proximal 49/12, mid 77/24. Vertebral Right 44/5 Left 35/7. ECA (PS Only) Right 92 left 102. ICA/CCA peak systolic ratio: Right 0.8 Left 0.9 ICA/CCA end diastolic ratio: Right 0.7 Left 1.1 Vertebral arteries: antegrade flow. Comments: Atherosclerotic plaque in the right common carotid bulb. Area stenosis 11%, diameter stenosis 18%. Atherosclerotic plaque in the distal left CCA and the proximal left ICA. Area stenosis in the left CCA bulb is 35%, diameter stenosis is 44%. Area stenosis in the proximal left ICA is 35%. Diameter stenosis is 40%. IMPRESSION: 1. Doppler evaluation of the bilateral carotid systems and vertebral arteries shows no hemodynamically significant stenoses. 2. No significant amount of plaque seen in the carotid arteries bilaterally. Bilateral vertebral arteries showed antegrade-cephalad flow. Electronically signed by: Felipe Pope MD 03/22/2017 9:34 AM SHIRT LINE OPERATOR
== END | disposition home or self-care (01) ==
LOC: US 12:48
PROVIDERS: ATTEND Family Medicine
DX: I65.23 Occlusion and stenosis of bilateral carotid arteries (principal)

== ENCOUNTER → 2017-06-28 | Outpatient (CLI) | payer MEDICARE | LOC: GMAL 10:39 | PROVIDERS: ATTEND Family Medicine | DX: D51.3 Other dietary vitamin B12 deficiency anemia (principal); E55.9 Vitamin D deficiency, unspecified ==

== ENCOUNTER 2017-12-22 15:07 | Emergency (ER) | payer MEDICARE ==
--- NOTE | 2017-12-22 16:10 | RAD ---
EXAM DESCRIPTION: Ankle,Left 3 Views CLINICAL HISTORY: 72 years Female, deformity after fall COMPARISON: None. FINDINGS: Ankle fracture dislocation with disruption of the ankle mortise with marked lateral displacement of talus relative to the tibia. Displaced fracture through the distal fibula. Marked soft tissue swelling. Plantar calcaneal spur. Calcific enthesophyte at the Achilles tendon insertion. An additional osseous fragment seen anteriorly which may represent a fracture fragment from the ulnar side, possibly from the anterior tibia. IMPRESSION: * Ankle fracture dislocation with displaced distal fibular fracture and posterolateral displacement of the talus relative to the tibia. * Additional osseous fragment seen anteriorly of unknown donor site, possibly from the anterior aspect of the tibia or displaced fibular fracture. Electronically signed by: Rafi Stokes MD 12/22/2017 4:08 PM CDT
--- NOTE | 2017-12-22 16:10 | RAD ---
EXAM DESCRIPTION: Chest,1 View CLINICAL HISTORY:72 years Female, syncope Comparison: April 26, 2016 FINDINGS: No focal lung consolidation. No pleural effusion. No pneumothorax. Cardiac and mediastinal silhouette is unremarkable. No acute osseous abnormality. Soft tissues are unremarkable. IMPRESSION: No acute findings. No focal lung consolidation. Electronically signed by: Rafi Stokes MD 12/22/2017 4:08 PM CDT
--- NOTE | 2017-12-22 16:11 | CT ---
EXAM DESCRIPTION: Head CLINICAL HISTORY: syncope COMPARISON: None Available. Technique: Contiguous axial images of the brain were obtained without the administration of intravenous contrast. Coronal and sagittal reformats obtained and reviewed. This exam was performed according to our departmental dose-optimization program which includes use of Automated Exposure Control, adjustment of the mA and/or kV according to patient size and/or use of iterative reconstruction technique. Findings: Brain: No hemorrhage. No territorial infarct. No mass effect. No herniation. Ventricles: Within normal limits for patient's age. Bones: No acute osseous abnormality. Paranasal sinuses: Unremarkable. Mastoid air cells: Unremarkable. Soft tissues: No acute abnormality. IMPRESSION: No acute intracranial abnormalities. Electronically signed by: Rafi Stokes MD 12/22/2017 4:09 PM CDT
[2017-12-22] MEDS ORDERED: SODIUM CHLORIDE 0.9% 1000ML 1,000 ML IVS ONE ×2 (16:18→18:11)
[2017-12-22] MEDS ORDERED: MORPHINE SULFATE INJ 10 MG/ML VIAL IV ONE (16:42)
[2017-12-22] MEDS ORDERED: MAGNESIUM SULFATE PREMIX 2GM 2 GM in PREMIX BAG 1 BAG IVPB ONE (17:12)
[2017-12-22] MEDS ORDERED: MAGNESIUM SULFATE PREMIX 2GM 50 ML IVPB ONE (17:15)
--- NOTE | 2017-12-22 17:27 | RAD ---
EXAM DESCRIPTION: Ankle,Left 2 Views CLINICAL HISTORY: 72 years, Female, post reduction COMPARISON: Ankle radiographs dated 12/22/2017 at 3:51 PM FINDINGS: Two views the LEFT ankle were performed. The interval since the prior study, alignment at the LEFT ankle is markedly improved in the transverse dimension. There continues to be posterior subluxation of the LEFT ankle with marked widening of the anterior aspect of the tibiotalar joint, best seen on the lateral radiograph. Alignment of the fractured fibula is also markedly improved. A small bony fragment remains present adjacent to the anterior aspect of the tibia. 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 IMPRESSION: Improved lateral alignment at the fracture dislocation of the LEFT ankle. Continued posterior subluxation of the talus relative to the tibia with marked widening of the anterior tibiotalar joint. Electronically signed by: Concepción Benítez MD 12/22/2017 5:26 PM CDT
[2017-12-22] MEDS ORDERED: NOREPINEPHRINE BITARTRATE 4 MG/4 ML VIAL IVPB ONE (17:59)
[2017-12-22] MEDS ORDERED: DEXTROSE 5% 250ML 250 ML ONE (18:00)
[2017-12-22] MEDS ORDERED: methylPREDNISolone SODIUM SUC 125 MG/2 ML VIAL IV ONE (18:03)
[2017-12-22] MEDS ORDERED: cefTRIAXone SODIUM 1 GM in SODIUM CHL 0.9% 50ML MIN-BAG+ 50 ML IVPB ONE (18:06)
[2017-12-22] MEDS ORDERED: cefTRIAXone SODIUM 1 GM VIAL ONE (18:07)
[2017-12-22] MEDS ORDERED: SODIUM CHL 0.9% 50ML MIN-BAG+ 50 ML IVPB ONE (18:07)
[2017-12-22] MEDS ORDERED: NOREPINEPHRINE BITARTRATE 4 MG in DEXTROSE 5% 250ML 250 ML IVPB SCH (18:30)
[2017-12-22] MEDS ORDERED: CHLORHEXIDINE GLUCONATE 4 % 15 ML UD TOP ONE (19:08)
--- NOTE | 2017-12-22 20:04 | ED.PDOC ---
History of Present Illness - General Chief Complaint: Trauma Stated Complaint: s/p fall-left ankle pain Time Seen by Provider: 12/22/17 15:15 Source: patient Exam Limitations: no limitations - History of Present Illness Initial Comments: the patient is a 72-year-old female presenting to the emergency room secondary to a fall [facility]. The patient apparently passed out and fell. She had 2 further syncopal episodes in the ambulance coming here. The patient was found to be significantly hypotensive. She was however able to give her medical history in between periods of passing out. She reports that she has been feeling weak and tired for the last week or so. No urinary symptoms. No cough. No shortness of breath other than with exertion. She has had a history of multiple falls. EMS reports that they are at her house one or 2 times a week for falls. She has a history of diabetes, a hemorrhagic stroke, chronic renal insufficiency, pancreatitis and hypertension. She is on multiple blood pressure medications in at least 2 diuretics including high-dose spironolactone. Timing/Duration: unsure Severity: severe Improving Factors: medication Worsening Factors: nothing Associated Symptoms: diaphoresis, loss of appetite, malaise, syncope, weakness Allergies/Adverse Reactions: Allergies [place] Allergy (Severe, Verified 04/26/16 08:07) Amlodipine [From Norvasc] Allergy (Verified 04/26/16 08:07) Codeine Allergy (Verified 04/26/16 08:07) Diazepam [From Valium] Allergy (Verified 04/26/16 08:07) Penicillins Allergy (Verified 04/26/16 08:07) Phenytoin [From Dilantin] Allergy (Verified 04/26/16 08:07) Sulfa Antibiotics Allergy (Verified 04/26/16 08:07) oregano Allergy (Uncoded 04/26/16 08:07) Home Medications: Ambulatory Orders B-Complex W/ Folic Acid [B-Complex] 1 tab PO DAILY 01/28/15 Simvastatin [Zocor] 20 mg PO BEDTIME 01/28/15 Aspirin [Sarah Low Dose] 81 mg PO DAILY 12/22/17 Carvedilol [Coreg] 12.5 mg PO BID 12/22/17 Cyanocobalamin [Vitamin B-12] 1,000 mcg PO DAILY 12/22/17 Furosemide Tab [Lasix Tab] 40 mg PO DAILY 12/22/17 Insulin Glargine [Toujeo Solostar] 20 unit SC BID 12/22/17 Insulin Lispro (Human) [Humalog] 13 unit SC TIDFD 12/22/17 Lisinopril [Prinivil] 10 mg PO DAILY 12/22/17 Spironolactone [Aldactone] 50 mg PO DAILY 12/22/17 raNITIdine HCL [Zantac] 150 mg PO PRN 12/22/17 Review of Systems - Review of Systems Constitutional: States: malaise, weakness EENTM: States: no symptoms reported - the patient does have chronic decreased vision out of the left eye and esotropia. Respiratory: States: no symptoms reported Cardiology: States: no symptoms reported Gastrointestinal/Abdominal: States: no symptoms reported Genitourinary: States: no symptoms reported Musculoskeletal: States: see HPI - chronic diffuse arthritis as well. Pain is in the left ankle. Deformity is obvious. Skin: States: no symptoms reported Neurological: States: other - syncope Endocrine: States: excessive sweating All other Systems: No Change from Baseline Past Medical History (General) - Patient Medical History Hx Seizures: No Hx Stroke: No Hx Asthma: No Hx of COPD: Yes Hx Cardiac Disorders: No Hx Congestive Heart Failure: Yes Hx Pacemaker: No Hx Hypertension: Yes Hx Diabetes: Yes Hx Cancer: Yes - Melanoma Hx MRSA: Yes - Chest Lesion 2017 MRSA Source:: Wound - Vaccination History Hx Influenza Vaccination: No Hx Pneumococcal Vaccination: Yes - Social History Hx Tobacco Use: No Hx Alcohol Use: No Hx Substance Use: No Hx Physical Abuse: No Hx Emotional Abuse: No Family Medical History - Family History Mother Family History: Unknown Living Status: Hx Cardiac Disease: Yes - mom Hx Family Diabetes: Yes - dad Hx Family Cancer: Yes - basal cell ca-dad;uterine ca-sister,mother Physical Exam - Physical Exam General Appearance: Other - the patient was initially drowsy and diaphoretic. Eye Exam: right normal Ears, Nose, Throat: hearing grossly normal, normal ENT inspection Neck: full range of motion, supple Respiratory: lungs clear, normal breath sounds, no respiratory distress, no accessory muscle use Cardiovascular/Chest: no edema, irregularly irregular - initially however once the blood pressure rises she goes back into sinus rhythm. Peripheral Pulses: radial,right: 1+, radial,left: 1+ - both pulses improve with improvement in blood pressure, dorsalis pedis,right: 1+, dorsalis pedis,left: 1+ , posterior tibialis,right: 1+, posterior tibialis,left: 1+ Gastrointestinal/Abdominal: non tender, soft Rectal Exam: deferred Back Exam: no CVA tenderness, no vertebral tenderness Extremity: no pedal edema, no calf tenderness, other - gross deformity of the left ankle. No laceration. Neurologic: glassine machine tender II-XII nml as tested, alert - after blood pressures improved. Drowsy initially., oriented x 3 Skin Exam: diaphoresis, pallor Comments: Vital Signs - 24 hr 12/22/17 12/22/17 12/22/17 15:15 15:34 16:15 Temperature 97.9 F Pulse Rate [ 63 73 65 Right Ulnar] Respiratory 12 20 Rate Blood Pressure 116/49 146/86 75/47 [Right Arm] O2 Sat by Pulse 97 96 98 Oximetry 12/22/17 12/22/17 12/22/17 16:27 16:53 17:30 Temperature Pulse Rate [ 70 68 55 L Right Ulnar] Respiratory 12 16 Rate Blood Pressure 95/73 116/63 86/49 [Right Arm] O2 Sat by Pulse 97 94 L Oximetry 12/22/17 12/22/17 12/22/17 17:52 18:10 18:36 Temperature Pulse Rate [ 57 L 58 L 109 H Right Ulnar] Respiratory 18 Rate Blood Pressure 83/45 97/56 124/77 [Right Arm] O2 Sat by Pulse 97 99 Oximetry 12/22/17 18:56 Temperature Pulse Rate [ 60 Right Ulnar] Respiratory 14 Rate Blood Pressure 118/69 [Right Arm] O2 Sat by Pulse 97 Oximetry Progress - Progress Progress: 12/22/17 20:07 the patient is 72-year-old female presenting to emergency room secondary to a syncopal episode where she fell and broke her left ankle. She has an overt fibular fracture with dislocation of the tibiotalar joint. There is also anterior chip fragment in the joint space from the tibia. The joint was reduced and splinted here. Pulses are symmetrical in bilateral lower extremities though chronically decreased. She does appear to be neurovascularly at her baseline. The patient's markedly hypotensive on arrival. She has received approximately 2-1/2 L of IV fluids and has been placed on low-dose levo fed. Blood pressures have corrected with this measure. She is alert and oriented and cooperative. Blood culture has been taken. It was initially thought the patient was likely septic and has received a dose of Zosyn to that end. At this point time I however have not found any source for any infection or any overt symptoms of infection otherwise. It is possible that the hypotension is due to blood pressure medications and dehydration related to blood pressure medications. These have been held for now. Initially the patient was in atrial fibrillation but has corrected back to normal sinus rhythm with improvement of perfusion. Lactic acid is consistent with a hypotension. Head CT and chest x-ray are reassuring. Transferred for higher level of care. Acceptance is appreciated. Critical care time spent with this patient and management of her hypotension of uncertain source as well as and plan of care and consultation with family is 45 minutes. This is excluding otherwise billable procedures. - Results/Orders Results/Orders: Laboratory Tests 12/22/17 12/22/17 12/22/17 15:35 15:35 15:35 WBC 9.4 RBC 4.22 Hgb 14.0 Hct 41.8 MCV 99.2 H MCH 33.1 H MCHC 33.5 RDW 13.1 Plt Count 330 MPV 9.3 Absolute Neuts (auto) 5.70 Absolute Lymphs (auto) 2.40 Absolute Monos (auto) 0.80 Absolute Eos (auto) 0.40 Absolute Basos (auto) 0.10 Neutrophils % 60.2 Lymphocytes % 25.7 Monocytes % 8.6 Eosinophils % 4.3 Basophils % 1.2 PT 10.1 INR 1.01 PTT (SP) 21.1 L Sodium 135 Potassium 3.6 Chloride 97 L Carbon Dioxide 21 Anion Gap 20.6 H BUN 44 H Creatinine 2.39 H BUN/Creatinine Ratio 18.4 Random Glucose 258 H Serum Osmolality 290.1 Lactic Acid Calcium 10.6 H Magnesium 1.5 L Total Bilirubin 0.8 AST 39 ALT 24 Alkaline Phosphatase 114 Creatine Kinase 95 CK-MB (CK-2) 2.0 CK-MB (CK-2) % Not Reportable Troponin I < 0.02 B-Natriuretic Peptide 23.6 Serum Total Protein 8.7 H Albumin 4.6 Globulin 4.1 H Albumin/Globulin Ratio 1.1 TSH Urine Color Urine Appearance Urine pH Ur Specific [place] Urine Protein Urine Glucose (UA) Urine Ketones Urine Blood Urine Nitrite Urine Bilirubin Urine Urobilinogen Ur Leukocyte Esterase Urine RBC Urine WBC Ur Epithelial Cells Urine Bacteria Urine Mucus 12/22/17 12/22/17 12/22/17 15:35 18:05 19:25 WBC RBC Hgb Hct MCV MCH MCHC RDW Plt Count MPV Absolute Neuts (auto) Absolute Lymphs (auto) Absolute Monos (auto) Absolute Eos (auto) Absolute Basos (auto) Neutrophils % Lymphocytes % Monocytes % Eosinophils % Basophils % PT INR PTT (SP) Sodium Potassium Chloride Carbon Dioxide Anion Gap BUN Creatinine BUN/Creatinine Ratio Random Glucose Serum Osmolality Lactic Acid 7.4 H* Calcium Magnesium Total Bilirubin AST ALT Alkaline Phosphatase Creatine Kinase CK-MB (CK-2) CK-MB (CK-2) % Troponin I B-Natriuretic Peptide Serum Total Protein Albumin Globulin Albumin/Globulin Ratio TSH 3.13 Urine Color Yellow Urine Appearance Clear Urine pH 5.5 Ur Specific [place] 1.015 Urine Protein 30 Urine Glucose (UA) 500 H Urine Ketones Negative Urine Blood Small H Urine Nitrite Negative Urine Bilirubin Negative Urine Urobilinogen 0.2 Ur Leukocyte Esterase Negative Urine RBC 1-3 Urine WBC 1-3 Ur Epithelial Cells 5-10 Urine Bacteria [address] scan of the head as well as chest x-ray showed no acute pathology. Departure - Departure Clinical Impression: Syncope and collapse Hypotension Qualifiers: Hypotension type: hypotension due to drug Qualified Code(s): I95.2 - Hypotension due to drugs Ankle fracture, bimalleolar, closed Qualifiers: Encounter type: initial encounter Laterality: left Qualified Code(s): S82.842A - Displaced bimalleolar fracture of left lower leg, initial encounter for closed fracture Disposition: Transfer to Hospital Condition: Serious Referrals: Jordin Altman III, MD [Primary Care Provider] - 1-2 Weeks Home Medications: Ambulatory Orders B-Complex W/ Folic Acid [B-Complex] 1 tab PO DAILY 01/28/15 Simvastatin [Zocor] 20 mg PO BEDTIME 01/28/15 Aspirin [Sarah Low Dose] 81 mg PO DAILY 12/22/17 Carvedilol [Coreg] 12.5 mg PO BID 12/22/17 Cyanocobalamin [Vitamin B-12] 1,000 mcg PO DAILY 12/22/17 Furosemide Tab [Lasix Tab] 40 mg PO DAILY 12/22/17 Insulin Glargine [Toujeo Solostar] 20 unit SC BID 12/22/17 Insulin Lispro (Human) [Humalog] 13 unit SC TIDFD 12/22/17 Lisinopril [Prinivil] 10 mg PO DAILY 12/22/17 Spironolactone [Aldactone] 50 mg PO DAILY 12/22/17 raNITIdine HCL [Zantac] 150 mg PO PRN 12/22/17 Transfer to Outside Facility - Transfer Information Accepting Provider:: dr rosenthal Accepting Facility: [facility] Reason for Transfer: required specialist not available
[2017-12-22] MEDS ORDERED: DEXTROSE 50% 25 GM/50 ML SYG IV ONE (20:08)
[2017-12-22 21:09] VITALS: BP 168/93; TEMP 97.3; O2SAT 98
== END 2017-12-22 20:45 | disposition short-term general hospital (02) ==
LOC: ER 15:07
DX: S82.842A Displaced bimalleolar fracture of left lower leg, initial encounter for closed fracture (principal); I95.2 Hypotension due to drugs; R55 Syncope and collapse; R53.1 Weakness; E11.22 Type 2 diabetes mellitus with diabetic chronic kidney disease; I13.0 Hypertensive heart and chronic kidney disease with heart failure and stage 1 through stage 4 chronic kidney disease, or unspecified chronic kidney disease; N18.9 Chronic kidney disease, unspecified; I50.9 Heart failure, unspecified; J44.9 Chronic obstructive pulmonary disease, unspecified; Z88.0 Allergy status to penicillin; Z91.81 History of falling; Z88.5 Allergy status to narcotic agent; Z88.8 Allergy status to other drugs, medicaments and biological substances; Z85.820 Personal history of malignant melanoma of skin; Z79.82 Long term (current) use of aspirin; Z79.4 Long term (current) use of insulin; Z79.899 Other long term (current) drug therapy; W19.XXXA Unspecified fall, initial encounter; Y92.129 Unspecified place in nursing home as the place of occurrence of the external cause
CPT/HCPCS: 36415; 70450; 71045; 73600; 73610; 80053; 81001; 82533; 82550; 82553; 83605; 83735; 83880; 84443; 84484; 85025; 85610; 85730; 87040; 93005; J0696; J2270; J2930; J3475; J7030; J7050; J7060

== ENCOUNTER → 2018-06-03 | Outpatient (CLI) | payer MEDICARE | LOC: GMAL 15:41 | PROVIDERS: ATTEND Family Medicine | DX: E55.9 Vitamin D deficiency, unspecified (principal) ==

== ENCOUNTER → 2018-06-05 | Outpatient (CLI) | payer MEDICARE ==
--- NOTE | 2018-06-06 08:12 | US ---
EXAM DESCRIPTION: Pelvis Transvaginal CLINICAL HISTORY: 72 years Female, Postmenopausal bleeding COMPARISON: None. TECHNIQUE: Transabdominal and transvaginal sonographic images of the pelvis were performed. Color Doppler was utilized. FINDINGS: Uterus: The uterus measures 6.8 x 3.2 x 4.0 cm and is in a normal position. Endometrial thickness measures 10 mm and is considered abnormally thickened for post opacification. Uterine fibroid measuring 0.7 x 0.5 x 0.8 cm is present within the anterior uterine body. Fluid structure within the cervix measuring up to 1.1 cm is present which may represent fluid within the cervical canal or nabothian cyst. Right adnexa: The right ovary is nonvisualized. Left adnexa: The left ovary is nonvisualized. Peritoneal cavity: No free fluid is seen in the cul-de-sac. IMPRESSION: 1. Abnormally thickened endometrium. Further evaluation such as hysteroscopy or MRI of the female pelvis is recommended to evaluate and exclude underlying malignancy. 2. Uterine fibroid. 3. Fluid structure within the cervix may represent fluid within the cervical canal or a nabothian cyst. This can be evaluated with the MRI of the female pelvis as well. Electronically signed by: Anthony Kiran MD 06/06/2018 8:09 AM CDT
== END ==
LOC: US 09:36
PROVIDERS: ATTEND Family Medicine
DX: N95.0 Postmenopausal bleeding (principal); D25.9 Leiomyoma of uterus, unspecified; R93.89 Abnormal findings on diagnostic imaging of other specified body structures

== ENCOUNTER → 2019-02-20 | Outpatient (CLI) | payer MEDICARE | LOC: GMAL 10:45 | PROVIDERS: ATTEND Family Medicine | DX: D51.3 Other dietary vitamin B12 deficiency anemia (principal); R53.83 Other fatigue; E55.9 Vitamin D deficiency, unspecified; I12.9 Hypertensive chronic kidney disease with stage 1 through stage 4 chronic kidney disease, or unspecified chronic kidney disease; E11.40 Type 2 diabetes mellitus with diabetic neuropathy, unspecified; E78.2 Mixed hyperlipidemia ==

== ENCOUNTER → 2020-02-26 | Outpatient (CLI) | payer MEDICARE | LOC: GMAL 10:33 | PROVIDERS: ATTEND Family Medicine | DX: D51.3 Other dietary vitamin B12 deficiency anemia (principal); E55.9 Vitamin D deficiency, unspecified; Z79.899 Other long term (current) drug therapy; E11.40 Type 2 diabetes mellitus with diabetic neuropathy, unspecified; E78.2 Mixed hyperlipidemia; R53.83 Other fatigue ==